=== PATIENT | male | born 1945 | race Caucasian/White ===

== ENCOUNTER 2019-09-27 10:54 | Outpatient (CLI) | payer MEDICARE, MEDICAID, SELFPAY ==
[2019-09-27 11:22] LABS: Basophils Absolute Auto 0.1 K/mm3 (0.0-0.1); Basophils Percent Auto 1.8 % (0.2-1.2); Eosinophils Absolute Auto 0.4 K/mm3 (0-0.3); Eosinophils Percent Auto 5.2 % (0-4.4); Hematocrit 38.1 % (42.0-52.0); Hemoglobin 12.6 g/dL (14.0-18.0); Immature Granulocyte Absolute 0.01 K/mm3 (0.00-0.031); Immature Granulocyte Percent A 0.1 % (0-0.5); Lymphocytes Absolute Auto 1.91 K/mm3 (0.9-3.2); Lymphocytes Percent Auto 26.1 % (18.3-44.2); Mean Corpuscular HGB Conc 33.1 g/dl (32-36); Mean Corpuscular Hemoglobin 33.7 pg (26-34); Mean Corpuscular Volume 101.9 fl (80-100); Mean Platelet Volume 9.4 fl (7.4-10.4); Monocytes Absolute Auto 0.5 K/mm3 (0.1-0.6); Monocytes Percent Auto 7.3 % (2.6-8.5); Neutrophils Absolute Auto 4.4 K/mm3 (1.3-6.7); Neutrophils Percent Auto 59.5 % (45.5-73.1); Platelet Count Result 195 k/mm3 (150-375); Red Blood Count 3.74 M/mm3 (4.6-6.20); Red Cell Distribution Width 11.6 % (11.5-14.5); White Blood Count 7.3 K/mm3 (4.5-10.0)
[2019-09-27 11:23] LABS: Alanine Aminotransferase 30 U/L (4-50); Albumin Level 4.3 g/dL (3.5-5.1); Alkaline Phosphatase 58 U/L (38-126); Anion Gap 12 mmol/L (8-16); Aspartate Amino Transferase 28 U/L (17-59); Bilirubin,Total 0.3 mg/dL (0.2-1.3); Blood Urea Nitrogen 32 mg/dL (9-20); Calcium 9.1 mg/dL (8.4-10.2); Carbon Dioxide 29 mmol/L (22-30); Chloride 96 mmol/L (98-107); Cholesterol 137 mg/dL (0-200); Estimated Glomerular Filt Rate 10; Glucose 120 mg/dL (75-110); HDL Direct 42 mg/dL; Potassium 4.6 mmol/L (3.4-5.0); Sodium 137 mmol/L (137-145); Triglycerides 129 mg/dL (<150)
[2019-09-27 11:34] LABS: LDL Cholesterol Direct 64 mg/dL
[2019-09-27 13:16] LABS: Hemoglobin A1C 5.6 % (<5.7)
== END 2019-09-27 10:55 | disposition home or self-care (01) ==
PROVIDERS: PCP Internal Medicine; Visit Provider Clinical Nurse Specialist
DX: E11.9 Type 2 diabetes mellitus without complications (principal); Z12.5 Encounter for screening for malignant neoplasm of prostate
CPT/HCPCS: 36415; 80053; 80061; 83036; 84153; 85025; G0103

== ENCOUNTER 2021-05-28 14:44 | Inpatient (IN) | payer MEDICARE, MEDICAID, SELFPAY ==
[2021-05-28] VITALS (13 sets, daily range): BP systolic 106–154; BP diastolic 47–115; PULSE 64–85; RESP 12–20; TEMP 36.7–37.2; O2SAT 91–100; BMI 27.3
--- NOTE | ~2021-05-28 | XR_ITS ---
EXAMINATION: XR chest 1V portable Exam Date/Time: 05/28/2021 16:40 CDT CLINICAL HISTORY: dyspnea Comparison: 08/25/2018. RESULT: Lines, tubes, and devices: None. Lungs and pleura: Diffuse reticular pattern, slightly decreased since the prior study. Cardiomediastinal silhouette: Stable cardiomediastinal silhouette. Other: No acute osseous or upper abdominal finding. IMPRESSION: Pulmonary opacities may reflect mild interstitial edema, senescent change, or a combination of the tw o. Reviewed, dictated and finalized at location K. IMPRESSION: Pulmonary opacities may reflect mild interstitial edema, senescent change, or a combination of the two.
--- NOTE | ~2021-05-28 | BM_ITS ---
EXAMINATION: CCL bone marrow asp w bx diag DATE: 06/01/2021 10:01 INDICATION: Anemia. TECHNIQUE: A time-out was performed to verify the patient's name, date of , and procedure to b e performed. The procedure including the risks, benefits, and alternatives was discussed with the pat ient. Risks discussed included bleeding and infection. The patient understood the risks and agreed to proceed. The skin overlying the left ilium was prepped and draped in usual sterile fashion. Anesth etic was administered with 1% lidocaine subcutaneously. Moderate sedation was achieved with 1 mg Vers ed IV and 50 mcg fentanyl IV. An 11 gauge needle was inserted into the ilium with fluoroscopic janelle nce. Bone marrow was aspirated. An 8 gauge needle was then inserted into the ilium with fluoroscopic guidance. A core bone marrow biopsy was obtained. There were no immediate complications. Fluoroscopy exposure time was 0.0 minutes. The total number of images saved was 0. FINDINGS: Real-time fluoroscopy demonstrates a marker overlying the left posterior superior iliac spi ne. IMPRESSION: 1. Fluoro-guided bone marrow aspiration. 2. Fluoro-guided bone marrow core biopsy. Reviewed, dictated and finalized at location A.
--- NOTE | ~2021-05-28 | XR_ITS ---
EXAMINATION: XR shoulder LT min 2V EXAM DATE: 05/29/2021 09:48 INDICATION: No Injury Bilateral Shoulder Pain. TECHNIQUE: The following left shoulder projections obtained: frontal projection with internal rotatio n, frontal projection with external rotation, Grashey, and axillary (4+ views). Comparison is made to prior examination from 07/10/2013. FINDINGS: No evidence of left shoulder rotator cuff calcific tendinosis. There is moderate glenohu meral joint, moderate acromioclavicular joint primary osteoarthritis, with minimal progression compar ed to 2013. There are no acute fractures or dislocations identified. There is no subcutaneous gas. The soft tissue is unremarkable. There are no radiopaque foreign bodies. IMPRESSION: Moderate left shoulder osteoarthritis. Reviewed, dictated and finalized at location A.
--- NOTE | ~2021-05-28 | XR_ITS ---
EXAM: XR_[id number]_CR HISTORY: Shoulder pain, no injury COMPARISON: None available FINDINGS: Severe osteopenia. The craniocervical association and atlantoaxial joint are normal save f or the presence of mild degenerative change. Prevertebral soft tissues are normal. Mild disc space na rrowing in the lower cervical spine. Mild multilevel facet hypertrophy. IMPRESSION: No acute fracture or traumatic malalignment in the cervical spine. Reviewed, dictated and finalized at location K.
--- NOTE | ~2021-05-28 | XR_ITS ---
EXAMINATION: XR shoulder RT min 2V EXAM DATE: 05/29/2021 09:48 INDICATION: Bilateral shoulder pain. TECHNIQUE: The following right shoulder projections obtained: frontal projection with internal rotati on, frontal projection with external rotation, Grashey, and scapular Y view (4+ views). There is no prior study for comparison. FINDINGS: No evidence of right shoulder rotator cuff calcific tendinosis. There is moderate glenoh umeral joint, moderate acromioclavicular joint primary osteoarthritis. There are no acute fractures o r dislocations identified. There is no subcutaneous gas. The soft tissue is unremarkable. There a re no radiopaque foreign bodies. IMPRESSION: Moderate right shoulder osteoarthritis. Reviewed, dictated and finalized at location A.
--- NOTE | ~2021-05-28 | XR_ITS ---
EXAMINATION: XR chest 1V portable DATE: 05/30/2021 09:12 INDICATION: Shortness of breath. TECHNIQUE: A single frontal view of the chest was obtained. COMPARISON: Chest single view 05/28/2021, CT abdomen and pelvis 08/30/2017 FINDINGS: There is a diffuse interstitial pattern. Perihilar airspace opacities are noted. No pleural effusion or pneumothorax. The heart size is normal. IMPRESSION: 1. Worsened diffuse lung disease, likely mild pulmonary edema. Reviewed, dictated and finalized at location A.
--- NOTE | 2021-05-28 14:57 | ECG_ITS ---
Measurements Intervals [place] Rate: 71 P: -45 [place]: 163 QRS: 15 QRSD: 108 T: 129 QT: 432 QTc: 471 Interpretive Statements SINUS RHYTHM POSSIBLE ANTERIOR MYOCARDIAL INFARCTION , OF INDETERMINATE AGE [30 ms Q WAVE IN V3/V4, OR R < 0.2 mV IN V4] MODERATE T-WAVE ABNORMALITY, CONSIDER LATERAL ISCHEMIA [-0.1+ mV T WAVE IN I/aVL/V5/V6] COMPARED TO ECG 08/26/2018 12:50:04 NO SIGNIFICANT CHANGES Electronically Signed On 05-29-2021 6:55:06 CDT by Latonya Mcqueen M.D.
--- NOTE | 2021-05-28 15:00 | ED.GENADULT ---
HPI - General Adult General Chief complaint: Recheck/Abnormal Lab/Rx Stated complaint: low hemoglobin Time Seen by Provider: 05/28/21 14:46 Source: RN notes reviewed History of Present Illness HPI narrative: Patient presents to emergency department from home for anemia. The patient states he is a dialysis patient with dialysis Sunday and followed by Dr. Ruiz he had dialysis yesterday and hemoglobin was drawn at that time they came back with the results of 7.6. Patient's hemoglobin was 10.4 on April 16 and is progressively decreased down to 9.2 on May 14. Patient is on a baby aspirin today but denies any other blood thinners denies any blood in his stool he does receive Epogen shots with his last he states he has been feeling generally weak and tired he notes mild shortness of breath with ambulation Related Data Home Medications Medication Instructions Recorded Confirmed aspirin 81 mg tablet,delayed 81 mg PO DAILY 03/24/19 03/25/19 release blood sugar diagnostic #10 each 03/24/19 03/25/19 ipratropium bromide 17 2 puff INHALATION TID 03/24/19 03/25/19 mcg/actuation HFA aerosol inhaler nifedipine 60 mg tablet,extended 60 mg PO DAILY 03/24/19 03/25/19 release sevelamer HCl 800 mg tablet 1,600 mg PO TID tablet 03/24/19 03/25/19 minoxidil 2.5 mg tablet 10 mg PO DAILY tablet 03/25/19 03/25/19 Allergies Allergy/AdvReac Type Severity Reaction Status Date / Time shellfish derived Allergy Unknown Anaphylactic Verified 05/28/21 15:09 Shock SHELLFISH Allergy Unknown Anaphylaxis Uncoded 05/28/21 15:09 Review of Systems Review of Systems: Gen.: Denies fevers or chills ENT: Denies congestion Respiratory: Ports mild shortness of breath with ambulation him CV: Denies chest pain or palpitations GI: Denies abdominal pain nausea, emesis or diarrhea reports chronic renal failure dialysis Musculoskeletal: Denies back pain or muscle pain Neuro: Denies numbness, tingling for general weakness Skin: Denies rash Except as documented, all other systems reviewed and negative PMFSH Past Medical History Medical History Constipation by delayed colonic transit Diabetic retinopathy Diastolic heart failure End stage renal disease Hyperglycemia Insomnia Nonrheumatic aortic (valve) stenosis Surgical History Surgical History (Updated 03/25/19 @ 12:52 by Dinorah Liu CMA) Fistula Status post balloon angioplasty of pulmonary artery branches Social History Social History Smoking status: Former smoker Smoking end date: 02/19/05 Alcohol intake: never Exam Narrative: APPEARANCE: No acute distress, nontoxic, resting in bed EYES: EOMI HEENT: Normocephalic, atraumatic, OMM RESPIRATORY: No respiratory distress Clear to auscultation bilaterally with no rhonchi wheezing or rales. CARDIOVASCULAR: Regular rate and rhythm without murmurs rubs or gallops. ABDOMINAL: Soft, nontender, nondistended, no rebound or guarding Rectal: No hemorrhoids or fissures no active bleeding brown stool in rectal vault that is Hemoccult negative MUSCULOSKELETAl: Moves all extremities. No clubbing, cyanosis or edema. NEURO: Awake and alert. Following commands, speech normal, no focal deficits SKIN:: Warm, dry. No rashes lesions or abrasions PSYCHIATRIC: Normal affect/mood, Course Course Emergency Course: Discussed with Dr. Ruiz agrees with consult request patient received 1 unit PRBCs with consult to hematology Discussed with Dr. Duran who agrees with consult agrees with plan for 1 unit of blood transfusion With STRUCTURAL ENGINEERING PROJECT MANAGER Crystal for Dr. Russell agrees with admission Discussed with patient and family results of workup and diagnosis. Discussed need for admission. Patient and family understand and agree to current treatment plan Vital Signs Vital signs: Vital Signs Temperature 98.2 F 05/28/21 14:50 Pu
[2021-05-28 15:09] LABS: Basophils Absolute Auto 0.1 K/mm3 (0.0-0.1); Basophils Percent Auto 1.1 % (0.2-1.2); Eosinophils Absolute Auto 0.5 K/mm3 (0-0.3); Eosinophils Percent Auto 8.3 % (0-4.4); Hematocrit 25.3 % (42.0-52.0); Immature Granulocyte Absolute 0.02 K/mm3 (0.00-0.031); Immature Granulocyte Percent A 0.3 % (0-0.5); Lymphocytes Absolute Auto 0.88 K/mm3 (0.9-3.2); Mean Corpuscular HGB Conc 31.6 g/dl (32-36); Mean Corpuscular Hemoglobin 36.7 pg (26-34); Mean Corpuscular Volume 116.1 fl (80-100); Mean Platelet Volume 9.6 fl (7.4-10.4); Monocytes Absolute Auto 0.4 K/mm3 (0.1-0.6); Monocytes Percent Auto 5.7 % (2.6-8.5); Neutrophils Absolute Auto 4.4 K/mm3 (1.3-6.7); Neutrophils Percent Auto 70.6 % (45.5-73.1); Platelet Count Result 215 k/mm3 (150-375); Red Blood Count 2.18 M/mm3 (4.6-6.20); Red Cell Distribution Width 14.4 % (11.5-14.5); White Blood Count 6.3 K/mm3 (4.5-10.0)
[2021-05-28 15:18] LABS: Prothrombin Time 13.1 Seconds (11.1-14.7)
[2021-05-28 15:19] LABS: Alanine Aminotransferase 13 U/L (4-50); Albumin Level 4.1 g/dL (3.5-5.1); Alkaline Phosphatase 58 U/L (38-126); Anion Gap 11 mmol/L (8-16); Aspartate Amino Transferase 29 U/L (17-59); Bilirubin,Total 0.6 mg/dL (0.2-1.3); Blood Urea Nitrogen 48 mg/dL (9-20); Calcium 8.8 mg/dL (8.4-10.2); Carbon Dioxide 28 mmol/L (22-30); Chloride 98 mmol/L (98-107); Estimated CRCL calculation 9 ml/min; Estimated Glomerular Filt Rate 9; Glucose 172 mg/dL (65-110); Potassium 4.1 mmol/L (3.4-5.0); Sodium 137 mmol/L (137-145)
[2021-05-28 15:34] LABS: Partial Thromboplastin Time 27.9 SECONDS (22.3-36.8)
[2021-05-28 16:21] LABS: Immature Reticulocyte Fraction 14.5 % (3.0-15.9); Reticulocyte Percent 3.25 % (0.7-4.3); Reticulocytes Absolute 0.06 B/L (32.2-175.7)
[2021-05-28 16:47] LABS: Iron 73 ug/dL (49-181)
[2021-05-28 16:56] LABS: Percent Iron Saturation 33 % (20-50)
--- NOTE | 2021-05-28 18:33 | PM.IMHP ---
H&P: HPI History of Present Illness Date/Time: Patient was placed observation status for expected length of stay less than 23 hours for management, will plan to re-evaluate tomorrow for improvement. 05/28/21 18:33 Chief Complaint: Fatigue Narrative: Mr. Cheek there is a 75-year-old gentleman who presented to the emergency room after having laboratories performed at outside facility and being told by his steam and gas turbine assembler to come to emergency room. Patient has a known history of end-stage renal disease and is on hemodialysis Sunday, Sunday, Sunday. Patient had laboratories drawn yesterday and it was noted the patient had a hemoglobin of 7.6. Patient was notified by his steam and gas turbine assembler to come to the hospital. Patient states that he has been feeling very fatigued over the last few months and he is not sure why. Patient states he has chronic insomnia so this is not a change for him. Patient denies any obvious signs and symptoms of bleeding. Patient denies any hematemesis, melena, hematochezia, or hematuria. Patient denies any chest pain, shortness of breath, lightheadedness, dizziness, syncopal, or near syncopal episodes. Patient states he has just progressively gotten weaker. Patient states that he has become weak enough that it is difficult for him to walk at times. Patient has a known history of coronary artery disease status post stent placement, hypertension, diabetes mellitus, diabetic retinopathy, and glaucoma. Patient is a former smoker smoked approximately half a pack of cigarettes a day for 40 years. Patient states he has been taking all medications at home without any difficulty and has been attending all dialysis treatments without any difficulty. Review of Systems Review of Systems: A 12 point review of systems was completed patient all pertinent positive and negative per HPI the remainder are unremarkable. [facility] Past Medical History Medical History (Updated 05/28/21 @ 18:45 by Nan Frazier APRN) Constipation by delayed colonic transit Coronary artery disease Diabetic retinopathy Diastolic heart failure End stage renal disease Hyperglycemia Hypertension Insomnia Nonrheumatic aortic (valve) stenosis Surgical History Surgical History (Updated 03/25/19 @ 12:52 by Dinorah Liu CMA) Fistula Status post balloon angioplasty of pulmonary artery branches Social History Social History Smoking status: Former smoker Smoking end date: 02/19/05 Alcohol intake: never Meds Home Medications and Allergies Home Medications Medication Instructions Recorded Confirmed Type aspirin 81 mg tablet,delayed 81 mg PO DAILY 03/24/19 03/25/19 History release blood sugar diagnostic #10 each 03/24/19 03/25/19 History ipratropium bromide 17 2 puff INHALATION TID 03/24/19 03/25/19 History mcg/actuation HFA aerosol inhaler nifedipine 60 mg tablet,extended 60 mg PO DAILY 03/24/19 03/25/19 History release sevelamer HCl 800 mg tablet 1,600 mg PO TID tablet 03/24/19 03/25/19 History minoxidil 2.5 mg tablet 10 mg PO DAILY tablet 03/25/19 03/25/19 History linaclotide 72 mcg capsule 72 mcg PO DAILY PRN #90 cap 09/30/19 09/30/19 Rx atorvastatin 40 mg tablet 40 mg PO DAILY #90 tablet 07/09/20 Rx metoprolol succinate 100 mg 100 mg PO DAILY #90 tablet 07/09/20 Rx tablet,extended release 24 hr lisinopril 20 mg tablet 20 mg PO DAILY #30 tablet 12/01/20 Rx Allergies Allergy/AdvReac Type Severity Reaction Status Date / Time shellfish derived Allergy Unknown Anaphylactic Verified 05/28/21 15:09 Shock SHELLFISH Allergy Unknown Anaphylaxis Uncoded 05/28/21 15:09 Vital Signs Vital Signs - 24 hr 05/28/21 14:50 05/28/21 15:09 05/28/21 15:43 Temperature 36.8 C Pulse Rate 70 67 Respiratory Rate 18 15 14 Blood Pressure 119/66 106/47 L Pulse Oximetry 94 95 93 05/28/21 16:51 Temperature Pulse Rate 64 Respiratory Rate 12 Blood Pressure 1
[2021-05-28 18:39] LABS: Lactate Dehydrogenase 287 U/L (313-618)
--- NOTE | 2021-05-28 18:47 | ADMGEN ---
This patient, Isidoro Cheek, was admitted to [facility] Surg Room 307-01. Patient/family oriented to hospital policies and general routines including ID bracelet, bed and alarms, visiting hours, pain management, procedures, bathroom and other care routines, personal items, smoking policy, room service/diet, and visiting hours. Information on how to activate the Rapid Response Team has been discussed. Patient/Family are encouraged to report perceived risks to care and to ask questions if they do not understand what they are told or what they should do.
[2021-05-28] MEDS: HEPARIN SODIUM 5,000 UNITS/ML VIAL 5000 UNITS SUB-Q (21:29)
[2021-05-28] MEDS: diphenhydrAMINE HCl CAP 25 MG CAPSULE PO (21:29)
[2021-05-28] MEDS: ACETAMINOPHEN 500 MG TABLET 1000 MG PO (21:29)
[2021-05-28] MEDS: SODIUM CHLORIDE 0.9% IV 250 ML 30 ML IV CONT (21:30)
[2021-05-28] MEDS: METOPROLOL SUCCINATE EXT REL 25 MG TABCR PO (22:53)
[2021-05-28] MEDS: NIFEdipine 30 MG TAB.ER.24 60 MG PO (22:54)
[2021-05-29] VITALS (18 sets, daily range): BP systolic 93–146; BP diastolic 39–87; PULSE 64–85; RESP 16–21; TEMP 36.3–36.9; O2SAT 91–100; BMI 27.3
[2021-05-29 06:06] LABS: Basophils Absolute Auto 0.1 K/mm3 (0.0-0.1); Eosinophils Absolute Auto 0.5 K/mm3 (0-0.3); Eosinophils Percent Auto 7.8 % (0-4.4); Hematocrit 26.2 % (42.0-52.0); Hemoglobin 8.2 g/dL (14.0-18.0); Immature Granulocyte Absolute 0.01 K/mm3 (0.00-0.031); Immature Granulocyte Percent A 0.1 % (0-0.5); Lymphocytes Absolute Auto 0.99 K/mm3 (0.9-3.2); Lymphocytes Percent Auto 14.6 % (18.3-44.2); Mean Corpuscular HGB Conc 31.3 g/dl (32-36); Mean Corpuscular Hemoglobin 34.9 pg (26-34); Mean Corpuscular Volume 111.5 fl (80-100); Mean Platelet Volume 9.9 fl (7.4-10.4); Monocytes Absolute Auto 0.4 K/mm3 (0.1-0.6); Monocytes Percent Auto 6.5 % (2.6-8.5); Neutrophils Absolute Auto 4.7 K/mm3 (1.3-6.7); Platelet Count Result 182 k/mm3 (150-375); Red Blood Count 2.35 M/mm3 (4.6-6.20); Red Cell Distribution Width 17.6 % (11.5-14.5); White Blood Count 6.8 K/mm3 (4.5-10.0)
[2021-05-29 06:18] LABS: Anion Gap 15 mmol/L (8-16); Blood Urea Nitrogen 58 mg/dL (9-20); Calcium 8.3 mg/dL (8.4-10.2); Carbon Dioxide 23 mmol/L (22-30); Chloride 100 mmol/L (98-107); Estimated CRCL calculation 8 ml/min; Estimated Glomerular Filt Rate 8; Glucose 124 mg/dL (65-110); Phosphorus 5.4 mg/dL (2.5-4.5); Potassium 4.1 mmol/L (3.4-5.0); Sodium 138 mmol/L (137-145)
[2021-05-29] MEDS: ATORVASTATIN 40 MG TABLET PO (08:03)
[2021-05-29] MEDS: lisinopriL 20 MG TABLET PO (08:03)
[2021-05-29] MEDS: SEVELAMER CARBONATE 800 MG TABLET 1600 MG PO ×3 (08:03→16:30)
[2021-05-29] MEDS: METOPROLOL SUCCINATE EXT REL 25 MG TABCR PO ×2 (08:04→20:23)
[2021-05-29] MEDS: HEPARIN SODIUM 5,000 UNITS/ML VIAL 5000 UNITS SUB-Q (08:05)
--- NOTE | 2021-05-29 08:55 | PM.CNNEP ---
Assessment and Plan Additional Plan 1. The patient has end-stage renal disease. This is due to hypertension and diabetes. He is due for dialysis tomorrow. His volume status looks okay today and his electrolytes are okay. 2. The patient has anemia. Hemoglobin is low, reticulocyte count is low, Iron is satisfactory. In addition stools are guaiac negative and he has not had any black or bloody stools by history. It sounds like this is decreased production of red cells. He is on Epogen 4000units per treatment. Not sure when that started. In March as his hemoglobin was above 11 so his Epogen was held for a couple of weeks. His white count and his platelet count are okay. Perhaps this is just delayed action after restarting EPO. Perhaps her might be something else going on. Hematology consult requested. 3. The patient has shoulder pain. It is unclear what is causing this. Will get x-rays of his shoulders. Consider orthopedic consult. The other option is a non orthopedic cause. One thing that comes to mind is pericarditis because it hurts more when he lays flat however this is usually pain between the shoulder blades not in the shoulder and he distinctly does not have this symptom. it also does not hurt worse when he takes a deep breath Will check an echocardiogram. 4. his blood pressure is on the low side. Will hold minoxidil and hold the nifedipine for now. See with the echocardiogram shows. If he has pericardial fluid, this may explain the low blood pressure and the shoulder pain and would be a reason not to restart the minoxidil. 5. Diabetes this will be managed by the hospitalists 6. hypertension as above. Were going to continue the lisinopril for now. 7. Renal osteodystrophy will check a phosphorus level in the morning. 8. Coronary disease: if all the above does not borrero out then consider cardiac issues for the shoulder pain and low blood pressure. Check troponins. History of Present Illness Reason for Consult Consult date: 05/29/21 Chief Complaint Chief complaint: Anemia, Chronic Renal Failure History of Present Illness Narrative: Isidoro is very pleasant 75-year-old gentleman who has multiple medical problems including end-stage renal disease on dialysis 3 times a week, coronary artery disease, Non rheumatic aortic valve stenosis, atorvastatin, hypertension, renal osteodystrophy, anemia of chronic kidney disease, diabetes with retinopathy, insomnia. the patient has been having problems for the last few weeks. He has had shoulder pain in both shoulders. It does not hurt with movement but hurts when he lays down flat. it is a generalized aching. It does not worsen with exertion. It does not worsen with a deep breath. He has no shortness of breath when recumbent. No back pain. No neck pain. He also has had insomnia. This is been going on for a long time. He stays up all night watching TV generally. It has been worsened lately because of his shoulder pain. The patient's hemoglobin was pretty good in March but then April was down a little bit but the last test at the dialysis unit showed his hemoglobin was only 7. yesterday he felt very fatigued and so came into the emergency room. In the ER his hemoglobin was 8, his iron was okay, his stool was guaiac negative, and his reticulocyte count was very low. He was admitted for transfusion and for hematology consult. The patient's blood pressure was low on admission as well. During dialysis is blood pressure is have occasionally dropped into the 90s with fluid remove but generally run in the 100-130 range. The patient has aortic stenosis. He does not remember when he last saw his recorder of deeds. Review of Systems Constitutional: Constitutional: Reports no additional constitutional complaints Eyes: Eyes: Reports no additional eye complaints ENT: Reports system reviewed and no additional complaints, except as documented Car
--- NOTE | 2021-05-29 10:06 | ECG_ITS ---
Measurements Intervals [place] Rate: 62 P: -21 [place]: 206 QRS: 14 QRSD: 108 T: 188 QT: 455 QTc: 464 Interpretive Statements SINUS RHYTHM ST DEVIATION AND MODERATE T-WAVE ABNORMALITY, CONSIDER LATERAL ISCHEMIA [-0.1+ mV T WAVE IN I/aVL/V5/V6] ABNORMAL ECG COMPARED TO ECG 05/28/2021 14:56:31 NO SIGNIFICANT CHANGES Electronically Signed On 05-30-2021 13:51:24 CDT by Shaq Wiseman M.D.
--- NOTE | 2021-05-29 10:30 | PM.IMPN ---
Progress Note: A&P Assessment and Plan (1) Symptomatic anemia: Code(s): D64.9 - Anemia, unspecified Status: Acute Assessment and Plan: Patient's hemoglobin is 8.0 with hematocrit 25.3. Reticulocyte count was performed and it resulted at 0.06. Patient's armor officer would like patient to receive 1 unit of packed red blood cells and hematology to be consulted. He received 1 unit of PRBC transfusion 05/28/2021. Hematology has been consulted and appreciate recommendations. Vitamin B12 normal. Check folic acid, RBC folate. Haptoglobin is pending. No hyperbilirubinemia suggestive of hemolysis though. LDH is low. Check hepatitis panel and CMV/EBV/HIV testing. Continue monitor H&H. FOBT test in the ER was reported to be negative (2) End stage renal disease: Code(s): N18.6 - End stage renal disease Status: Acute Assessment and Plan: Patient's armor officer consulted for inpatient hemo dialysis Sunday, Sunday, and Sunday. Patient appears euvolemic at this time. (3) Hypertension: Code(s): I10 - Essential (primary) hypertension Status: Acute Assessment and Plan: Will resume patient's home medications once we have a verified medication list and adjust medications accordingly for optimal blood pressure control. (4) Nonrheumatic aortic (valve) stenosis: Code(s): I35.0 - Nonrheumatic aortic (valve) stenosis Status: Acute (5) Shoulder pain: Code(s): M25.519 - Pain in unspecified shoulder Status: Acute Assessment and Plan: Has bilateral shoulder pain for a while. X-ray shoulder done earlier shows moderate osteoarthritis This could also be related to cervical disc disease referred pain. Will get x-ray cervical spine Very atypical for cardiac etiology however EKG and troponin was checked EKG showed nonspecific ST-T changes particularly in lateral leads. Troponin was ordered and came back elevated at 0.9. Serial troponins ordered. Repeat EKG showed similar ST-T changes in the lateral leads but new T-wave inversion in V5. Will consult Cardiology for further evaluation Does have history of coronary artery disease status post stent in the past (6) Murmur: Code(s): R01.1 - Cardiac murmur, unspecified Status: Acute Assessment and Plan: Is noted to have diffuse murmur his chest aortic stenosis history reported in his chart. Echocardiogram 2019 shows ejection fraction 55-60% mild MR mild aortic stenosis moderate aortic valve sclerosis and trace TR. Will get echocardiogram to evaluate Subjective Date/time seen: 05/29/21 10:30 Interval history: HPI: Mr. Cheek there is a 75-year-old gentleman who presented to the emergency room after having laboratories performed at outside facility and being told by his armor officer to come to emergency room. Patient has a known history of end-stage renal disease and is on hemodialysis Sunday, Sunday, Sunday. Patient had laboratories drawn yesterday and it was noted the patient had a hemoglobin of 7.6. Patient was notified by his armor officer to come to the hospital. Patient states that he has been feeling very fatigued over the last few months and he is not sure why. Patient states he has chronic insomnia so this is not a change for him. Patient denies any obvious signs and symptoms of bleeding. Patient denies any hematemesis, melena, hematochezia, or hematuria. Patient denies any chest pain, shortness of breath, lightheadedness, dizziness, syncopal, or near syncopal episodes. Patient states he has just progressively gotten weaker. Patient states that he has become weak enough that it is difficult for him to walk at times. Patient has a known history of coronary artery disease status post stent placement, hypertension, diabetes mellitus, diabetic retinopathy, and glaucoma. Patient is a former smoker smoked approximately half a pack of cigarettes a day for 40 years. Patient states he has been taking a
[2021-05-29 12:06] LABS: HIV 1/2 Ab P24 Ag Result Negative (Negative)
[2021-05-29 12:14] LABS: Hepatitis B Surface Antigen Negative (Negative)
[2021-05-29 12:20] LABS: HAV RESULT Negative (Negative); Hepatitis B Core IgM Result Negative (Negative)
[2021-05-29 12:32] LABS: Hepatitis C Virus Antibody Negative (Negative)
[2021-05-29] MEDS: ACETAMINOPHEN 500 MG TABLET 1000 MG PO (12:42)
--- NOTE | 2021-05-29 13:54 | PM.CNCAR ---
Assessment and Plan Additional Plan NSTEMI, Hx of CAD and prior PCI, for patient with anemia but no evidence of bleeding, ESRD on HD, HTN, Plan Keep HGB > 8 gm/dL, ASA 81 mg daily, heparin infusion, Statin, B-vinnie LHC in AM, consult hematology to evaluate cause of anemia History of Present Illness History of Present Illness Consult date/time: 05/29/21 13:54 Consult reason: Other (elevated troponin) Reason For Visit: Anemia, Chronic Renal Failure Narrative: Patient presented as referral by his doctor for abnormal HGB. Patient has been feeling fatigue with generalized weakness recently. No chest pain or SOB. trop was done as part of work up on admission and was positive and repeat was higher. He still denies chest or cardiac symptoms. He had Hx of CAD and prior PCI. Hx of ESRD on HD, HTN and DM. Review of Systems Review of Systems: All systems reviewed & are unremarkable except as noted in HPI and below PMFSH Past Medical History Medical History Constipation by delayed colonic transit Coronary artery disease Diabetic retinopathy Diastolic heart failure End stage renal disease Hyperglycemia Hypertension Insomnia Nonrheumatic aortic (valve) stenosis Surgical History Surgical History Fistula Status post balloon angioplasty of pulmonary artery branches Social History Social History Smoking status: Current every day smoker Tobacco type: cigarettes Smoking end date: 02/19/05 Alcohol intake: never Substance use: never Spiritual care concerns: No Meds Home Medications and Allergies Home Medications Medication Instructions Recorded Confirmed Type blood sugar diagnostic #10 each 03/24/19 05/28/21 History nifedipine 60 mg tablet,extended 60 mg PO BID 03/24/19 05/28/21 History release sevelamer HCl 800 mg tablet 1,600 mg PO TID tablet 03/24/19 05/28/21 History minoxidil 2.5 mg tablet 10 mg PO BID tablet 03/25/19 05/28/21 History atorvastatin 40 mg tablet 40 mg PO DAILY #90 tablet 07/09/20 05/28/21 Rx lisinopril 20 mg tablet 20 mg PO DAILY #30 tablet 12/01/20 05/28/21 Rx metoprolol succinate 25 mg PO BID 05/28/21 05/28/21 History Allergies Allergy/AdvReac Type Severity Reaction Status Date / Time shellfish derived Allergy Unknown Anaphylactic Verified 05/28/21 18:58 Shock SHELLFISH Allergy Unknown Anaphylaxis Uncoded 05/28/21 18:58 Vital Signs Vital Signs - 24 hr 05/28/21 14:50 05/28/21 15:09 05/28/21 15:43 Temperature 36.8 C Pulse Rate 70 67 Respiratory Rate 18 15 14 Blood Pressure 119/66 106/47 L Pulse Oximetry 94 95 93 05/28/21 16:51 05/28/21 18:30 05/28/21 18:46 Temperature 37.0 C Pulse Rate 64 65 78 Respiratory Rate 12 12 16 Blood Pressure 129/54 L 136/61 133/61 Pulse Oximetry 99 97 97 05/28/21 19:05 05/28/21 20:29 05/28/21 22:00 Temperature 37.0 C 36.9 C Pulse Rate 78 85 Respiratory Rate 16 18 Blood Pressure 133/61 137/68 Pulse Oximetry 91 100 05/28/21 22:29 05/28/21 22:48 05/28/21 22:53 Temperature 36.9 C 37.2 C Pulse Rate 85 77 77 Respiratory Rate 20 20 Blood Pressure 131/105 H 154/115 H Pulse Oximetry 97 96 05/28/21 23:48 05/29/21 00:47 05/29/21 00:48 Temperature 36.7 C 36.8 C 36.8 C Pulse Rate 64 66 66 Respiratory Rate 18 16 16 Blood Pressure 138/89 146/87 H 146/87 H Pulse Oximetry 100 100 100 05/29/21 01:48 05/29/21 06:00 05/29/21 08:00 Temperature 36.7 C 36.8 C Pulse Rate 66 64 Respiratory Rate 16 18 Blood Pressure 106/39 L 93/66 L 127/61 Pulse Oximetry 100 96 91 05/29/21 08:04 05/29/21 09:34 Temperature Pulse Rate 73 Respiratory Rate Blood Pressure Pulse Oximetry 93 Exam Const: General: comfortable and no acute distress Other: Able to lie flat HENMT: General nose exam: Normal nares present and no epistaxis Mouth: Yes moist m
--- NOTE | 2021-05-29 14:10 | PC.NURSE ---
This patient, Isidoro Cheek, was transferred to IMU on 05/29/21 at 1410. Personal belongings sent with patient. Report given to Lucy OWEN. Appropriate documentation sent with patient.
--- NOTE | 2021-05-29 15:06 | PC.NURSE ---
This patient, Isidoro Cheek, was received from [[id number] ] on 05/29/21 at 14:20. Patient/family oriented to unit policies and routines
[2021-05-29] MEDS: ASPIRIN 81 MG CHEWABLE TABLET 324 MG PO (15:54)
[2021-05-29 16:31] LABS: Glucose Point of Care 115 mg/dl (65-105)
--- NOTE | 2021-05-29 16:58 | PC.NURSE ---
Notified Dr. Bills and Dr. Russell of Patients elevated troponin of 1.550 at 13:16 and 1.610 at 16:41. Dr. Bills mentioned a Heparin drip. Notified Dr of nurse communication stating no systemic Heparin for Dialysis only. Spoke with Dr. Russell and I had the same conversation regarding Heparin and that the patient is on Dialysis and is due for Dialysis on Sunday05-30-2021. Asked Dr Russell to communicate with Dr. Bills to clarify orders.
--- NOTE | 2021-05-29 17:07 | PC.NURSE ---
Notified Dr. Ruiz of patient elevated troponin of 1.610 and the plan to put patient on a heparin drip and Dr. Ruiz agreed with administration of Heparin.
[2021-05-29 17:33] LABS: Basophils Absolute Auto 0.1 K/mm3 (0.0-0.1); Basophils Percent Auto 0.9 % (0.2-1.2); Eosinophils Absolute Auto 0.5 K/mm3 (0-0.3); Hematocrit 25.2 % (42.0-52.0); Hemoglobin 8.2 g/dL (14.0-18.0); Immature Granulocyte Absolute 0.02 K/mm3 (0.00-0.031); Immature Granulocyte Percent A 0.3 % (0-0.5); Lymphocytes Absolute Auto 0.92 K/mm3 (0.9-3.2); Lymphocytes Percent Auto 12.4 % (18.3-44.2); Mean Corpuscular HGB Conc 32.5 g/dl (32-36); Mean Corpuscular Hemoglobin 35.8 pg (26-34); Mean Platelet Volume 9.7 fl (7.4-10.4); Monocytes Absolute Auto 0.4 K/mm3 (0.1-0.6); Monocytes Percent Auto 5.5 % (2.6-8.5); Neutrophils Absolute Auto 5.5 K/mm3 (1.3-6.7); Neutrophils Percent Auto 73.9 % (45.5-73.1); Platelet Count Result 198 k/mm3 (150-375); Red Blood Count 2.29 M/mm3 (4.6-6.20); Red Cell Distribution Width 17.5 % (11.5-14.5); White Blood Count 7.4 K/mm3 (4.5-10.0)
[2021-05-29 17:43] LABS: Prothrombin Time 13.2 Seconds (11.1-14.7)
[2021-05-29] MEDS: HEPARIN SOD/D5W 100 UNITS/ML 25,000 UNITS/250 ML BAG 8 UNITS IV CONT (17:43)
[2021-05-29 17:44] LABS: Partial Thromboplastin Time 29.4 SECONDS (22.3-36.8)
[2021-05-29] MEDS: HYDROcodone/acetaminophen (*CRX) 5-325 MG TABLET 1 TAB PO (20:24)
[2021-05-29] MEDS: MELATONIN 5 MG TABLET PO (20:24)
[2021-05-30] VITALS (27 sets, daily range): BP systolic 116–179; BP diastolic 43–97; PULSE 57–89; RESP 16–28; TEMP 36.4–36.6; O2SAT 96–100
[2021-05-30] MEDS: HEPARIN SODIUM 5,000 UNITS/ML VIAL 4000 UNITS IV PUSH ×2 (00:25→16:22)
[2021-05-30 06:42] LABS: Basophils Absolute Auto 0.1 K/mm3 (0.0-0.1); Basophils Percent Auto 0.9 % (0.2-1.2); Eosinophils Absolute Auto 0.6 K/mm3 (0-0.3); Eosinophils Percent Auto 7.9 % (0-4.4); Hematocrit 25.5 % (42.0-52.0); Hemoglobin 7.9 g/dL (14.0-18.0); Immature Granulocyte Absolute 0.03 K/mm3 (0.00-0.031); Immature Granulocyte Percent A 0.4 % (0-0.5); Lymphocytes Absolute Auto 1.06 K/mm3 (0.9-3.2); Lymphocytes Percent Auto 13.5 % (18.3-44.2); Mean Corpuscular Hemoglobin 36.9 pg (26-34); Mean Corpuscular Volume 119.2 fl (80-100); Mean Platelet Volume 9.5 fl (7.4-10.4); Monocytes Absolute Auto 0.4 K/mm3 (0.1-0.6); Monocytes Percent Auto 5.4 % (2.6-8.5); Neutrophils Absolute Auto 5.7 K/mm3 (1.3-6.7); Neutrophils Percent Auto 71.9 % (45.5-73.1); Platelet Count Result 131 k/mm3 (150-375); Red Blood Count 2.14 M/mm3 (4.6-6.20); Red Cell Distribution Width 16.7 % (11.5-14.5); White Blood Count 7.9 K/mm3 (4.5-10.0)
[2021-05-30 06:56] LABS: Partial Thromboplastin Time 105.6 SECONDS (22.3-36.8)
[2021-05-30 07:06] LABS: Albumin Level 3.6 g/dL (3.5-5.1); Anion Gap 12 mmol/L (8-16); Blood Urea Nitrogen 72 mg/dL (9-20); Calcium 8.5 mg/dL (8.4-10.2); Carbon Dioxide 25 mmol/L (22-30); Chloride 99 mmol/L (98-107); Estimated CRCL calculation 6 ml/min; Estimated Glomerular Filt Rate 6; Glucose 131 mg/dL (65-110); Phosphorus 5.6 mg/dL (2.5-4.5); Potassium 4.3 mmol/L (3.4-5.0); Sodium 136 mmol/L (137-145)
[2021-05-30 08:30] LABS: Hepatitis B Surface Anti Res Positive
--- NOTE | 2021-05-30 09:12 | ECHO_ITS ---
Patient Info Name: Isidoro Cheek Age: 75 years : 1945 Gender: Male Ht: 66 in Wt: 169 lbs BSA: 1.91 m2 HR: 90 bpm BP: 135 / 56 mmHg Heart Rhythm: Sinus Rhythm Exam Date: 05/30/2021 8:45 AM Exam Location: [facility] Pul[facility] Patient Status: Inpatient Admit Date: 05/28/2021 Staff Ordering Physician: Odin Ruiz MD Take Off Man: Supa Sibley RDCS, RT Attending Provider: Preston Russell MD Referring Physician: Joseph LASSITER; Exam Type: CA echo doppler color flow Study Info Indications I35.0 - Nonrheumatic aortic (valve) stenosis Complete two-dimensional, color flow and Doppler transthoracic echocardiogram is performed. Summary 1. Complete two-dimensional, color flow and Doppler transthoracic echocardiogram is performed. 2. Left ventricular chamber dimension is mildly enlarged. 3. Left ventricular systolic function is severely reduced, estimated at 30-35%. 4. There is mildly increased left ventricular wall thickness. 5. The left ventricular diastolic function is abnormal. 6. The inferior wall, inferoseptal wall, apical cap, mid anteroseptal, basal inferolateral wall, and mid inferolateral wall are hypokinetic. 7. Left atrial chamber dimension is mildly enlarged. 8. There is moderate aortic valve stenosis with a peak velocity of 253 cm/s, mean gradient of 13 mmHg, and aortic valve area of 1.1 cm2. 9. There is moderate mitral valve regurgitation. 10. There is mild tricuspid valve regurgitation. Left Ventricle Left ventricular chamber dimension is mildly enlarged. Left ventricular systolic function is severely reduced, estimated at 30-35%. There is mildly increased left ventricular wall thickness. The left ventricular diastolic function is abnormal. The inferior wall, inferoseptal wall, apical cap, mid anteroseptal, basal inferolateral wall, and mid inferolateral wall are hypokinetic. All other loyd appear normal. Right Ventricle Right ventricular chamber dimension is normal. Right ventricular systolic function is normal. Left Atria Left atrial chamber dimension is mildly enlarged. Right Atria Right atrial chamber dimension is normal. Atrial Septum Intact interatrial septum visualized by color flow imaging. Aortic Valve The aortic valve is trileaflet. There is severe aortic valve sclerosis. There is moderate aortic valve stenosis with a peak velocity of 253 cm/s, mean gradient of 13 mmHg, and aortic valve area of 1.1 cm2. There is trace aortic valve regurgitation. Pulmonic Valve The pulmonic valve is normal. There is no pulmonic valve stenosis. There is trace pulmonic regurgitation. Mitral Valve The mitral valve has thickened leaflets. There is no mitral valve stenosis. There is moderate mitral valve regurgitation. Tricuspid Valve The tricuspid valve leaflets are normal. There is no significant tricuspid valve stenosis. There is mild tricuspid valve regurgitation. Pericardium/Pleural The pericardium appears normal. There is trivial pericardial effusion. Inferior Vena Cava Dilated inferior vena cava with <50% collapse upon inspiration consistent with elevated right atrial pressure, 15 mmHg. Aorta The aortic root size at the sinus of Valsalva is normal. There is mild aortic atherosclerosis. Left Ventricular Outflow Tract Name Value Normal
[2021-05-30] MEDS: FUROSEMIDE INJ 40 MG/4 ML VIAL IV PUSH ×2 (09:21→09:23)
[2021-05-30] MEDS: ATORVASTATIN 40 MG TABLET PO (09:24)
[2021-05-30] MEDS: lisinopriL 20 MG TABLET PO (09:25)
[2021-05-30] MEDS: METOPROLOL SUCCINATE EXT REL 25 MG TABCR PO ×2 (09:25→20:44)
--- NOTE | 2021-05-30 09:25 | ECG_ITS ---
Measurements Intervals Ronald Rate: 76 P: 13 SC: 199 QRS: 44 QRSD: 112 T: -1 QT: 417 QTc: 471 Interpretive Statements SINUS RHYTHM MODERATE INTRAVENTRICULAR CONDUCTION DELAY [110+ ms QRS DURATION] ST DEVIATION AND MODERATE T-WAVE ABNORMALITY, CONSIDER LATERAL ISCHEMIA [-0.1+ mV T WAVE IN I/aVL/V5/V6] COMPARED TO ECG 05/29/2021 10:16:36 NO SIGNIFICANT CHANGE Electronically Signed On 05-30-2021 15:36:05 CDT by Reinaldo Hagen M.D.
[2021-05-30] MEDS: FUROSEMIDE INJ 40 MG/4 ML VIAL (09:27)
--- NOTE | 2021-05-30 09:29 | PC.NURSE ---
special procedures technologist called to notify her of patient having increasing shortness of breath, in the meantime MD was walking down the hallway. MD notified of current situation. Pt on 5L NC sating from 75-95%. Pt restless and unable to lie flat. Upon reassessment pt's lungs are wheezy. New order for 40mg IVP Lasix x2 to help with pulmonary edema, and to place patient on continuous BiPAP, per verbal order from Dr. Russell.
[2021-05-30 10:05] LABS: Base Excess ABG -3.8 mEq/l (+/-2.0); Fractional Inspired Oxygen 60 %; HCO3 ABG 21.8 mEq/l (22.0-26.0); Oxygen Content ABG 16.2 %vol (16.0-22.0); Oxygen Saturation ABG 95.8 % (95.0-100.0); Oxyhemoglobin 93.1 % THb (90.0-100.0); PCO2 ABG 41.8 mmHg (35.0-45.0); PO2 ABG 84.8 mmHg (80.0-100.0); PO2 FiO2 Ratio Arterial Blood 1.41 %; Total Hemoglobin 12.3 g/dL (12.0-18.0); pH ABG 7.336 (7.350-7.450)
[2021-05-30 10:07] LABS: Device NON-INVASIVE VENT; Modified Allen's Test Pass; Non-Invasive Expiratory Pressure 7 CMH2O; Non-Invasive Inspiratory Pressure 12 CMH2O; Non-Invasive Vent Rate 16 /MIN; Site Drawn RIGHT RADIAL
--- NOTE | 2021-05-30 10:41 | PM.PNCARD ---
Progress Note: A&P Assessment and Plan (1) Nonrheumatic aortic (valve) stenosis: Code(s): I35.0 - Nonrheumatic aortic (valve) stenosis Status: Acute Assessment and Plan: Murmur sounds significant but echo is pending. (2) Hypertension: Code(s): I10 - Essential (primary) hypertension Status: Acute Assessment and Plan: Continue lisinopril, metoprolol, minoxidil, nifedipine. (3) End stage renal disease: Code(s): N18.6 - End stage renal disease Status: Acute Assessment and Plan: Hemodialysis now (4) Non-STEMI (non-ST elevated myocardial infarction): Code(s): I21.4 - Non-ST elevation (NSTEMI) myocardial infarction Status: Acute Assessment and Plan: Aspirin 81 mg p.o. daily, continue heparin drip, metoprolol, atorvastatin. Has anterolateral ST and T-wave abnormality, probably ischemic. Because of his acute shortness of breath, will dialyze now. Keep NPO after midnight for coronary angiogram tomorrow. (5) Symptomatic anemia: Code(s): D64.9 - Anemia, unspecified Status: Acute Assessment and Plan: Probably related to end-stage renal disease (6) Coronary artery disease: Code(s): I25.10 - Atherosclerotic heart disease of [place] coronary artery without angina pectoris Status: Inactive Assessment and Plan: Previous PCI. Subjective Date/time seen: 05/30/21 10:41 Interval history: HPI: Mr. Cheek there is a 75-year-old gentleman who presented to the emergency room after having laboratories performed at outside facility and being told by his tile designer to come to emergency room. Patient has a known history of end-stage renal disease and is on hemodialysis Sunday, Sunday, Sunday. Patient had laboratories drawn yesterday and it was noted the patient had a hemoglobin of 7.6. Patient was notified by his tile designer to come to the hospital. Patient states that he has been feeling very fatigued over the last few months and he is not sure why. Patient states he has chronic insomnia so this is not a change for him. Patient denies any obvious signs and symptoms of bleeding. Patient denies any hematemesis, melena, hematochezia, or hematuria. Patient denies any chest pain, shortness of breath, lightheadedness, dizziness, syncopal, or near syncopal episodes. Patient states he has just progressively gotten weaker. Patient states that he has become weak enough that it is difficult for him to walk at times. Patient has a known history of coronary artery disease status post stent placement, hypertension, diabetes mellitus, diabetic retinopathy, and glaucoma. Patient is a former smoker smoked approximately half a pack of cigarettes a day for 40 years. Patient states he has been taking all medications at home without any difficulty and has been attending all dialysis treatments without any difficulty. Date of service 05/30/2021: Had significant shortness of breath earlier today but no longer short of breath. No chest pain. Review of Systems Review of Systems: All systems reviewed & are unremarkable except as noted in HPI and below Constitutional: Constitutional: Reports weakness Eyes: Eyes: Denies blurry vision ENT: Reports Normal hearing present Cardiovascular: Cardiovascular: Denies chest pain Respiratory: Respiratory: Reports dyspnea Gastrointestinal: Gastrointestinal: Denies abdominal pain Genitourinary: Genitourinary: Denies dysuria Musculoskeletal: Musculoskeletal: Denies neck pain Integumentary/Breasts: Skin/Breast: Denies dry skin Neurologic: Denies headache(s) Psychiatric: Psychiatric: Denies anxiety Endocrine: Endocrine: Denies change in body appearance Hematologic/Lymphatic: Hematologic/Lymphatic: Denies easy bleeding Allergic/Immunologic: Allergic/Immunologic: Denies GI upset with certain foods Exam Const: General: comfortable and no acute distress Other: Able to lie flat HENMT: General no
--- NOTE | 2021-05-30 10:44 | PC.NURSE ---
Pt to dialysis with BiPAP on.
[2021-05-30 10:47] LABS: SARS-CoV-2 RNA PCR Negative
--- NOTE | 2021-05-30 12:46 | PDONCCN ---
HPI - Date of Consult Date/Time: 05/30/21 12:46 Requesting Physician: Preston Russell MD Primary Care Provider: Juan David Laboy, - Consult Narrative Reason for consult: Macrocytic anemia Narrative: Isidoro Cheek is a 75 year old male with history of chronic kidney disease and has been on hemodialysis came into the hospital after being told by his distribution center assistant for anemia with reticulocytopenia. He has been complaining of tiredness and fatigue. He denies any bleeding including melena hematochezia. Labs showed hemoglobin of 8 with absolute reticulocyte count of 0.06. He denies any recent infection including viral infection. No other new complaints. He received 1 unit of packed red blood cell due to tiredness and fatigue. Review of Systems - Review of Systems All systems reviewed & are unremarkable except as noted in HPI and bel - Neurologic Reports system reviewed and no additional complaints, except as documented, Reports hearing normal, Reports weakness, Denies headache(s) [facility] Medical History: Medical History (Last Updated 05/30/21 @ 10:44 by Shaq Wiseman MD) Constipation by delayed colonic transit Coronary artery disease Diabetic retinopathy Diastolic heart failure End stage renal disease Hyperglycemia Hypertension Insomnia Nonrheumatic aortic (valve) stenosis Surgical History: Surgical History (Last Reviewed 05/29/21 @ 09:02 by Odin Ruiz MD) Fistula Status post balloon angioplasty of pulmonary artery branches - Social History Social History: Social History (Last Reviewed 05/29/21 @ 09:02 by Odin Ruiz MD) Alcohol Use: Alcohol intake: never Substance Use: Substance use: never Others: Spiritual care concerns: No Smoking Status: Smoking status: Former smoker Tobacco type: cigarettes Smoking end date: 02/19/05 Smoking Pack-years: Smoking packs per day: 0.5 Smoking cigarettes per day: 10.0 Years smoked: 40 Smoking pack-years: 20.00 Meds Home Medications Medication Instructions Recorded Confirmed Type blood sugar diagnostic #10 each 03/24/19 05/28/21 History nifedipine 60 mg tablet,extended 60 mg PO BID 03/24/19 05/28/21 History release sevelamer HCl 800 mg tablet 1,600 mg PO TID tablet 03/24/19 05/28/21 History minoxidil 2.5 mg tablet 10 mg PO BID tablet 03/25/19 05/28/21 History atorvastatin 40 mg tablet 40 mg PO DAILY #90 tablet 07/09/20 05/28/21 Rx lisinopril 20 mg tablet 20 mg PO DAILY #30 tablet 12/01/20 05/28/21 Rx metoprolol succinate 25 mg PO BID 05/28/21 05/28/21 History Allergies Allergy/AdvReac Type Severity Reaction Status Date / Time shellfish derived Allergy Unknown Anaphylactic Verified 05/28/21 18:58 Shock SHELLFISH Allergy Unknown Anaphylaxis Uncoded 05/28/21 18:58 Results - Labs CBC & Chem 7: 05/30/21 06:36 05/30/21 06:36 Labs: Short CBC 05/29/21 05/30/21 Range/Units 17:29 06:36 WBC 7.4 7.9 (4.5-10.0) K/mm3 Hgb 8.2 L 7.9 L (14.0-18.0) g/dL Hct 25.2 L 25.5 L (42.0-52.0) % Plt Count 198 131 L (150-375) k/mm3 BMP 05/30/21 06:36 Sodium 136 L Potassium 4.3 Chloride 99 Carbon Dioxide 25 BUN 72 H D Creatinine 8.70 H Glucose 131 H Calcium 8.5 Cardiac Enzymes 05/29/21 05/29/21 05/30/21 Range/Units 12:44 15:39 06:36 Troponin I 1.550 H* D 1.610 H* 1.480 H* (0.000-0.034) ng/mL Liver Function 05/30/21 Range/Units 06:36 Albumin 3.6 (3.5-5.1) g/dL Assessment and Plan - Additional Plan Macrocytic anemia. Patient is a 75-year-old male with end-stage renal disease on hemodialysis. He came into the hospital with tiredness and fatigue. Hemoglobin was 8.0 and received 1 unit of packed red blood cell. He denies any bleeding including melena hematochezia. He denies any history of liver disease but has some history of drinking alcohol in the past. Denies any bone marrow dis
--- NOTE | 2021-05-30 13:22 | PM.PNNEP ---
Progress Note: A&P Assessment and Plan (1) End stage renal disease: Code(s): N18.6 - End stage renal disease Status: Chronic Assessment and Plan: HD today and continue M/W/ schedule follow electroltyes, volume status, and clearance (2) Non-STEMI (non-ST elevated myocardial infarction): Code(s): I21.4 - Non-ST elevation (NSTEMI) myocardial infarction Status: Acute Assessment and Plan: as noted by evidence to date Echo results noted on heparin gtt plan cardiac catheterization soon (3) Symptomatic anemia: Code(s): D64.9 - Anemia, unspecified Status: Acute Assessment and Plan: partly related to ESRD no evidence of GI loss on high dose Epogen with HD Hematology consulted follow H/H (4) Hypertension: Code(s): I10 - Essential (primary) hypertension Status: Chronic Assessment and Plan: reasonable control at this time continue home medications follow trend of hemodynamics (5) Diabetes: Code(s): E11.9 - Type 2 diabetes mellitus without complications Status: Chronic Assessment and Plan: follow accuchecks glycemic control Will continue to follow. Subjective Date/time seen: 05/30/21 13:22 Chart reviewed - assuming care from Dr. Vaca; tolerating dialysis treatment at this time (seen on HD at ~ 12:50PM) with improvement in respiratory status; no other acute issues noted at this time; seen by Cardiology yesterday as well and started on heparin gtt due to rising troponins. Exam Narrative: General: WD/WN male/female in NAD Heart: normal S1 and S2; no rub Lungs: bibasilar crackles Abdomen: soft, nontender, nondistended, positive bowel sounds Extremities: no cyanosis or clubbing; trace edema Skin: warm and dry Objective Data Vital Signs Vital Signs: Vital Signs Temp Pulse Resp BP Pulse Ox 05/30/21 13:10 100 05/30/21 13:05 65 18 100 05/30/21 10:52 68 16 98 05/30/21 10:08 64 18 99 05/30/21 10:00 65 05/30/21 09:27 96 05/30/21 09:25 88 05/30/21 08:00 36.4 C 72 28 H 179/97 H 97 05/30/21 05:37 70 05/30/21 03:59 62 18 96 05/30/21 03:40 36.6 C 66 18 135/56 L 96 05/30/21 02:00 58 L 05/30/21 00:00 57 L 20 98 05/29/21 23:39 36.4 C 85 20 116/68 98 05/29/21 21:07 68 05/29/21 20:23 66 05/29/21 20:04 95 05/29/21 20:00 66 20 95 05/29/21 19:53 36.3 C L 68 20 111/72 97 05/29/21 18:00 65 05/29/21 16:30 36.3 C L 66 21 H 132/57 L 97 05/29/21 16:00 65 93 05/29/21 14:45 93 05/29/21 14:00 36.9 C 67 16 124/65 97 Intake/Output Intake/Output: Intake & Output 05/27/21 05/28/21 05/29/21 05/30/21 23:59 23:59 23:59 23:59 Intake Total 0 1870 Output Total 0 Balance 0 1870 0 Meds/Results Medications: Active Medications Generic Name Dose Route Start Last Admin Trade Name Freq PRN Reason Stop Dose Admin Acetaminophen 1,000 mg 05/28/21 21:18 05/29/21 12:42 Acetaminophen 500 Mg Tablet PO 1,000 mg Q6H PRN Administration Mild Pain (1-3) or Fever Hydrocodone Bitart/Acetaminophen 1 tab 05/29/21 14:05 05/29/21 20:24 Hydrocodone/Acetaminophen (*Crx) 5-325 Mg Tablet PO 1 tab Q6H PRN Administration Pain Rated 4-6 Aspirin 81 mg 05/31/21 09:00 Aspirin 81 Mg Enteric Tablet PO QAM [facility] Atorvastatin Calcium 40 mg 05/29/21 09:00 05/30/21 09:24 Atorvastatin 40 Mg Tablet PO 40 mg DAILY SARITA Administration Diphenhydramine HCl 25 mg 05/28/21 21:19 05/28/21 21:29 Diphenhydramine Hcl Cap 25 Mg Capsule PO 25 mg HS PRN Administration Insomnia Epoetin Edmond-epbx 10,000 units 05/30/21 17:00 Epoetin [place]-Epbx 10,000 Units/Ml Vial IV PUSH [id number] SARITA Heparin Sodium (Porcine) 4,000 units 05/29/21 17:15 05/30/21 00:25 Heparin Sodium 5,000 Units/Ml Vial IV PUSH 4,000 units PRN PRN
--- NOTE | 2021-05-30 14:08 | PC.NURSE ---
Cardiopulmonary Rehab Services flyer was given to patient in cardiac admission folder.
--- NOTE | 2021-05-30 14:35 | PC.NURSE ---
Pt returned from dialysis via bed. 3L NC on patient with no difficulty breathing
--- NOTE | 2021-05-30 15:42 | PM.IMPN ---
Progress Note: A&P Assessment and Plan (1) Symptomatic anemia: Code(s): D64.9 - Anemia, unspecified Status: Acute Assessment and Plan: Patient's hemoglobin is 8.0 with hematocrit 25.3. Reticulocyte count was performed and it resulted at 0.06. Patient's pattern mechanic would like patient to receive 1 unit of packed red blood cells and hematology to be consulted. He received 1 unit of PRBC transfusion 05/28/2021. Hematology has been consulted and appreciate recommendations. Vitamin B12 normal. Check folic acid, RBC folate. Haptoglobin is pending. No hyperbilirubinemia suggestive of hemolysis though. LDH is low. Check hepatitis panel and CMV/EBV/HIV testing. Continue monitor H&H. FOBT test in the ER was reported to be negative. Ferritin is 911 not suggestive of iron deficiency. Discussed with hematology. He likely needs bone marrow biopsy for further evaluation (2) End stage renal disease: Code(s): N18.6 - End stage renal disease Status: Acute Assessment and Plan: Patient's pattern mechanic consulted for inpatient hemo dialysis Sunday, Sunday, and Sunday. He appeared to be in moderate respiratory distress with flash pulmonary edema. Urgent dialysis was arranged for this morning (3) Hypertension: Code(s): I10 - Essential (primary) hypertension Status: Acute Assessment and Plan: Will resume patient's home medications once we have a verified medication list and adjust medications accordingly for optimal blood pressure control. (4) Nonrheumatic aortic (valve) stenosis: Code(s): I35.0 - Nonrheumatic aortic (valve) stenosis Status: Acute (5) Shoulder pain: Code(s): M25.519 - Pain in unspecified shoulder Status: Acute Assessment and Plan: Has bilateral shoulder pain for a while. X-ray shoulder done earlier shows moderate osteoarthritis This could also be related to cervical disc disease referred pain. Will get x-ray cervical spine Very atypical for cardiac etiology however EKG and troponin was checked EKG showed nonspecific ST-T changes particularly in lateral leads. Troponin was ordered and came back elevated at 0.9. Serial troponins ordered. Repeat EKG showed similar ST-T changes in the lateral leads but new T-wave inversion in V5. Will consult Cardiology for further evaluation Does have history of coronary artery disease status post stent in the past Diagnosed with non ST-elevation MA On heparin drip per protocol Cardiology planning to do a heart catheterization for further evaluation (6) Murmur: Code(s): R01.1 - Cardiac murmur, unspecified Status: Acute Assessment and Plan: Is noted to have diffuse murmur his chest aortic stenosis history reported in his chart. Echocardiogram 2019 shows ejection fraction 55-60% mild MR mild aortic stenosis moderate aortic valve sclerosis and trace TR. Echo 05/30/2021 with EF 30-35% with hypokinetic inferior wall and inferoseptal wall apical cap mid anteroseptal basal inferolateral wall and mid inferolateral wall moderate aortic valve stenosis and moderate mitral valve regurgitation mild TR (7) Acute pulmonary edema: Code(s): J81.0 - Acute pulmonary edema Status: Acute Assessment and Plan: With moderate respiratory distress 05/30/2021 Lasix 80 mg IV x1 Placed on BiPAP 12 over 7 Arrange for urgent dialysis Additional Plan Critical care time 30 minutes Subjective Date/time seen: 05/30/21 15:42 Interval history: HPI: Mr. Cheek there is a 75-year-old gentleman who presented to the emergency room after having laboratories performed at outside facility and being told by his pattern mechanic to come to emergency room. Patient has a known history of end-stage renal disease and is on hemodialysis Sunday, Sunday, Sunday. Patient had laboratories drawn yesterday and it was noted the patient had a hemoglobin of 7.6. Patient was notified by his pattern mechanic to come to the hospital
[2021-05-30 16:07] LABS: Partial Thromboplastin Time 37.9 SECONDS (22.3-36.8)
[2021-05-30] MEDS: SEVELAMER CARBONATE 800 MG TABLET 1600 MG PO (16:22)
[2021-05-30] MEDS: HEPARIN SOD/D5W 100 UNITS/ML 25,000 UNITS/250 ML BAG 14 UNITS IV CONT (16:26)
[2021-05-30] MEDS: HYDROcodone/acetaminophen (*CRX) 5-325 MG TABLET 1 TAB PO (20:43)
[2021-05-30] MEDS: MELATONIN 5 MG TABLET PO (20:44)
[2021-05-30 22:56] LABS: Partial Thromboplastin Time > 200.0 SECONDS (22.3-36.8)
[2021-05-31] VITALS (20 sets, daily range): BP systolic 127–142; BP diastolic 54–83; PULSE 57–72; RESP 14–20; TEMP 36.4–36.7; O2SAT 95–100
[2021-05-31 06:19] LABS: Basophils Absolute Auto 0.1 K/mm3 (0.0-0.1); Eosinophils Absolute Auto 0.5 K/mm3 (0-0.3); Eosinophils Percent Auto 6.4 % (0-4.4); Hematocrit 25.5 % (42.0-52.0); Hemoglobin 8.2 g/dL (14.0-18.0); Immature Granulocyte Absolute 0.03 K/mm3 (0.00-0.031); Immature Granulocyte Percent A 0.4 % (0-0.5); Lymphocytes Absolute Auto 1.07 K/mm3 (0.9-3.2); Lymphocytes Percent Auto 14.9 % (18.3-44.2); Mean Corpuscular HGB Conc 32.2 g/dl (32-36); Mean Corpuscular Hemoglobin 35.8 pg (26-34); Mean Corpuscular Volume 111.4 fl (80-100); Mean Platelet Volume 10.1 fl (7.4-10.4); Monocytes Absolute Auto 0.5 K/mm3 (0.1-0.6); Monocytes Percent Auto 7.1 % (2.6-8.5); Neutrophils Percent Auto 70.2 % (45.5-73.1); Platelet Count Result 185 k/mm3 (150-375); Red Blood Count 2.29 M/mm3 (4.6-6.20); Red Cell Distribution Width 16.1 % (11.5-14.5); White Blood Count 7.2 K/mm3 (4.5-10.0)
[2021-05-31 06:29] LABS: Alanine Aminotransferase 9 U/L (4-50); Albumin Level 3.6 g/dL (3.5-5.1); Alkaline Phosphatase 55 U/L (38-126); Anion Gap 10 mmol/L (8-16); Aspartate Amino Transferase 20 U/L (17-59); Bilirubin,Total 0.6 mg/dL (0.2-1.3); Blood Urea Nitrogen 44 mg/dL (9-20); Calcium 8.5 mg/dL (8.4-10.2); Carbon Dioxide 30 mmol/L (22-30); Chloride 95 mmol/L (98-107); Estimated CRCL calculation 9 ml/min; Estimated Glomerular Filt Rate 9; Glucose 134 mg/dL (65-110); Magnesium 1.8 mg/dL (1.6-2.3); Sodium 135 mmol/L (137-145)
[2021-05-31] MEDS: HEPARIN SODIUM 5,000 UNITS/ML VIAL 3000 UNITS IV PUSH ×2 (07:04→20:39)
[2021-05-31] MEDS: lisinopriL 20 MG TABLET PO (08:30)
[2021-05-31] MEDS: METOPROLOL SUCCINATE EXT REL 25 MG TABCR PO ×2 (08:30→20:37)
[2021-05-31] MEDS: ATORVASTATIN 40 MG TABLET PO (08:30)
[2021-05-31] MEDS: ASPIRIN 81 MG ENTERIC TABLET PO (08:30)
--- NOTE | 2021-05-31 11:01 | PM.PNCARD ---
Progress Note: A&P Assessment and Plan (1) Nonrheumatic aortic (valve) stenosis: Code(s): I35.0 - Nonrheumatic aortic (valve) stenosis Status: Acute Assessment and Plan: Echo shows moderate aortic valve stenosis with a peak velocity of 253 cm/s, mean gradient of 13 mmHg, and aortic valve area of 1.1 cm2. He also has moderate MR. (2) Hypertension: Code(s): I10 - Essential (primary) hypertension Status: Acute Assessment and Plan: Continue lisinopril, metoprolol, minoxidil, nifedipine. (3) End stage renal disease: Code(s): N18.6 - End stage renal disease Status: Acute Assessment and Plan: Hemodialysis MW. (4) Non-STEMI (non-ST elevated myocardial infarction): Code(s): I21.4 - Non-ST elevation (NSTEMI) myocardial infarction Status: Acute Assessment and Plan: Aspirin 81 mg p.o. daily, continue heparin drip, metoprolol, atorvastatin. Has anterolateral ST and T-wave abnormality, probably ischemic. Not currently having any angina. He is on the schedule for coronary angiogram tomorrow morning. NPO after midnight (5) Symptomatic anemia: Code(s): D64.9 - Anemia, unspecified Status: Acute Assessment and Plan: Probably related to end-stage renal disease (6) Coronary artery disease: Code(s): I25.10 - Atherosclerotic heart disease of [place] coronary artery without angina pectoris Status: Inactive Assessment and Plan: Previous PCI. Subjective Date/time seen: 05/31/21 11:01 Interval history: HPI: Mr. Cheek there is a 75-year-old gentleman who presented to the emergency room after having laboratories performed at outside facility and being told by his pocket grinder operator to come to emergency room. Patient has a known history of end-stage renal disease and is on hemodialysis Sunday, Sunday, Sunday. Patient had laboratories drawn yesterday and it was noted the patient had a hemoglobin of 7.6. Patient was notified by his pocket grinder operator to come to the hospital. Patient states that he has been feeling very fatigued over the last few months and he is not sure why. Patient states he has chronic insomnia so this is not a change for him. Patient denies any obvious signs and symptoms of bleeding. Patient denies any hematemesis, melena, hematochezia, or hematuria. Patient denies any chest pain, shortness of breath, lightheadedness, dizziness, syncopal, or near syncopal episodes. Patient states he has just progressively gotten weaker. Patient states that he has become weak enough that it is difficult for him to walk at times. Patient has a known history of coronary artery disease status post stent placement, hypertension, diabetes mellitus, diabetic retinopathy, and glaucoma. Patient is a former smoker smoked approximately half a pack of cigarettes a day for 40 years. Patient states he has been taking all medications at home without any difficulty and has been attending all dialysis treatments without any difficulty. Date of service 05/30/2021: Had significant shortness of breath earlier today but no longer short of breath. No chest pain. Date of service 05/31/2021: Feeling much better today. He is not short of breath. Comfortable on 1L O2 today. Denies any chest pain. Review of Systems Review of Systems: All systems reviewed & are unremarkable except as noted in HPI and below Constitutional: Constitutional: Denies headache(s) and Reports weakness Eyes: Eyes: Denies blurry vision ENT: Reports Normal hearing present, Denies headache(s) and Denies neck pain Cardiovascular: Cardiovascular: Denies chest pain and Reports dyspnea Respiratory: Respiratory: Reports dyspnea Gastrointestinal: Gastrointestinal: Denies abdominal pain Genitourinary: Genitourinary: Denies dysuria Musculoskeletal: Musculoskeletal: Denies neck pain Integumentary/Breasts: Skin/Breast: Denies dry skin Neurologic: Reports Normal hearing present, Den
--- NOTE | 2021-05-31 11:47 | PM.PNNEP ---
Progress Note: A&P Assessment and Plan (1) End stage renal disease: Code(s): N18.6 - End stage renal disease Status: Chronic Assessment and Plan: HD tomorrow and continue M/W/F schedule follow electroltyes, volume status, and clearance (2) Non-STEMI (non-ST elevated myocardial infarction): Code(s): I21.4 - Non-ST elevation (NSTEMI) myocardial infarction Status: Acute Assessment and Plan: as noted by evidence to date Echo results noted on heparin gtt plan cardiac catheterization tomorrow (3) Symptomatic anemia: Code(s): D64.9 - Anemia, unspecified Status: Acute Assessment and Plan: partly related to ESRD no evidence of GI loss on high dose Epogen with HD Hematology recommendations noted - bone marrow biopsy tomorrow follow H/H (4) Hypertension: Code(s): I10 - Essential (primary) hypertension Status: Chronic Assessment and Plan: reasonable control at this time continue home medications follow trend of hemodynamics (5) Diabetes: Code(s): E11.9 - Type 2 diabetes mellitus without complications Status: Chronic Assessment and Plan: follow accuchecks glycemic control Will continue to follow. Subjective Date/time seen: 05/31/21 10:47 Tolerated dialysis treatment yesterday with significant improvement in breathing/respiratory status post procedure; oxygen weaned down from BiPAP to room air but back on 1L currently; no other acute issues/events overnight or earlier this AM. Exam Narrative: General: WD/WN male/female in NAD Heart: normal S1 and S2; no rub Lungs: decreased at bases Abdomen: soft, nontender, nondistended, positive bowel sounds Extremities: no cyanosis or clubbing; trace edema Skin: warm and intact Objective Data Vital Signs Vital Signs: Vital Signs Temp Pulse Resp BP Pulse Ox 05/31/21 10:00 62 05/31/21 08:30 68 05/31/21 08:00 67 95 05/31/21 07:56 36.7 C 68 16 142/54 H 100 05/31/21 05:55 62 05/31/21 04:30 95 05/31/21 04:00 36.6 C 62 20 127/83 100 05/31/21 02:00 70 05/31/21 00:00 70 18 96 05/30/21 23:46 36.6 C 70 18 138/70 96 05/30/21 22:00 64 05/30/21 20:44 60 05/30/21 20:00 36.6 C 72 20 143/76 H 100 05/30/21 18:00 79 05/30/21 17:38 36.4 C L 100 05/30/21 16:00 36.6 C 78 20 141/43 H 97 05/30/21 14:40 36.6 C 71 18 146/61 H 100 05/30/21 14:00 62 116/55 L 05/30/21 13:15 68 137/63 05/30/21 13:10 100 05/30/21 13:05 65 18 100 05/30/21 12:30 62 139/64 05/30/21 12:00 62 131/63 Intake/Output Intake/Output: Intake & Output 05/28/21 05/29/21 05/30/21 05/31/21 23:59 23:59 23:59 23:59 Intake Total 0 1870 720 100 Output Total 100 Balance 0 1870 620 100 Meds/Results Medications: Active Medications Generic Name Dose Route Start Last Admin Trade Name Freq PRN Reason Stop Dose Admin Acetaminophen 1,000 mg 05/28/21 21:18 05/29/21 12:42 Acetaminophen 500 Mg Tablet PO 1,000 mg Q6H PRN Administration Mild Pain (1-3) or Fever Hydrocodone Bitart/Acetaminophen 1 tab 05/29/21 14:05 05/30/21 20:43 Hydrocodone/Acetaminophen (*Crx) 5-325 Mg Tablet PO 1 tab Q6H PRN Administration Pain Rated 4-6 Aspirin 81 mg 05/31/21 09:00 05/31/21 08:30 Aspirin 81 Mg Enteric Tablet PO 81 mg QAM SARITA Administration Atorvastatin Calcium 40 mg 05/29/21 09:00 05/31/21 08:30 Atorvastatin 40 Mg Tablet PO 40 mg DAILY SARITA Administration Diphenhydramine HCl 25 mg 05/28/21 21:19 05/28/21 21:29 Diphenhydramine Hcl Cap 25 Mg Capsule PO 25 mg HS PRN Administration Insomnia Epoetin Edmond-epbx 10,000 units 05/30/21 17:00 05/30/21 16:23 Epoetin Edmond-Epbx 10,000 Units/Ml Vial IV PUSH Not Given MoWeFr@1700 [facility] Heparin Sodium (Porcine) 4,000 units 05/29/21 17:15 05/30/21 16:22 Hepar
[2021-05-31] MEDS: SEVELAMER CARBONATE 800 MG TABLET 1600 MG PO ×2 (12:03→16:29)
--- NOTE | 2021-05-31 12:36 | PM.IMPN ---
Progress Note: A&P Assessment and Plan (1) Symptomatic anemia: Code(s): D64.9 - Anemia, unspecified Status: Acute Assessment and Plan: Patient's hemoglobin is 8.0 with hematocrit 25.3. Reticulocyte count was performed and it resulted at 0.06. Patient's book solicitor would like patient to receive 1 unit of packed red blood cells and hematology to be consulted. He received 1 unit of PRBC transfusion 05/28/2021. Hematology has been consulted and appreciate recommendations. Vitamin B12 normal. Check folic acid, RBC folate. Haptoglobin is pending. No hyperbilirubinemia suggestive of hemolysis though. LDH is low. Check hepatitis panel and CMV/EBV/HIV testing. Continue monitor H&H. FOBT test in the ER was reported to be negative. Ferritin is 911 not suggestive of iron deficiency. Discussed with hematology. He likely needs bone marrow biopsy for further evaluation (2) End stage renal disease: Code(s): N18.6 - End stage renal disease Status: Acute Assessment and Plan: Patient's book solicitor consulted for inpatient hemo dialysis Sunday, Sunday, and Sunday. He appeared to be in moderate respiratory distress with flash pulmonary edema. Urgent dialysis was arranged 05/30/2021 Continue dialysis as scheduled inpatient (3) Hypertension: Code(s): I10 - Essential (primary) hypertension Status: Acute Assessment and Plan: Will resume patient's home medications once we have a verified medication list and adjust medications accordingly for optimal blood pressure control. (4) Nonrheumatic aortic (valve) stenosis: Code(s): I35.0 - Nonrheumatic aortic (valve) stenosis Status: Acute (5) Shoulder pain: Code(s): M25.519 - Pain in unspecified shoulder Status: Acute Assessment and Plan: Has bilateral shoulder pain for a while. X-ray shoulder done earlier shows moderate osteoarthritis This could also be related to cervical disc disease referred pain. Will get x-ray cervical spine Very atypical for cardiac etiology however EKG and troponin was checked EKG showed nonspecific ST-T changes particularly in lateral leads. Troponin was ordered and came back elevated at 0.9. Serial troponins ordered. Repeat EKG showed similar ST-T changes in the lateral leads but new T-wave inversion in V5. Will consult Cardiology for further evaluation Does have history of coronary artery disease status post stent in the past Diagnosed with non ST-elevation MT On heparin drip per protocol Cardiology planning to do a heart catheterization for further evaluation which is scheduled for 06/01/2021 on aspirin and atorvastatin and metoprolol succinate. No further shoulder PE no chest pain (6) Murmur: Code(s): R01.1 - Cardiac murmur, unspecified Status: Acute Assessment and Plan: Is noted to have diffuse murmur his chest aortic stenosis history reported in his chart. Echocardiogram 2019 shows ejection fraction 55-60% mild MR mild aortic stenosis moderate aortic valve sclerosis and trace TR. Echo 05/30/2021 with EF 30-35% with hypokinetic inferior wall and inferoseptal wall apical cap mid anteroseptal basal inferolateral wall and mid inferolateral wall moderate aortic valve stenosis and moderate mitral valve regurgitation mild TR (7) Acute pulmonary edema: Code(s): J81.0 - Acute pulmonary edema Status: Acute Assessment and Plan: With moderate respiratory distress 05/30/2021 Lasix 80 mg IV x1 Placed on BiPAP 12 over 7 Arrange for urgent dialysis 05/31/2021 much improved and resolved pulmonary edema Subjective Date/time seen: 05/31/21 12:36 Interval history: HPI: Mr. Cheek there is a 75-year-old gentleman who presented to the emergency room after having laboratories performed at outside facility and being told by his book solicitor to come to emergency room. Patient has a known history of end-stage renal disease and is on hemodialysis Sunday, Sunday,
[2021-05-31 13:31] LABS: Partial Thromboplastin Time 116.1 SECONDS (22.3-36.8)
[2021-05-31] MEDS: HEPARIN SOD/D5W 100 UNITS/ML 25,000 UNITS/250 ML BAG 12 UNITS IV CONT (14:23)
[2021-05-31 20:22] LABS: Partial Thromboplastin Time 65.7 SECONDS (22.3-36.8)
[2021-05-31] MEDS: MELATONIN 5 MG TABLET PO (20:37)
[2021-05-31] MEDS: HYDROcodone/acetaminophen (*CRX) 5-325 MG TABLET 1 TAB PO (20:37)
[2021-06-01] VITALS (48 sets, daily range): BP systolic 111–163; BP diastolic 45–75; PULSE 55–92; RESP 12–20; TEMP 36.2–37.1; O2SAT 93–100
[2021-06-01 02:53] LABS: Basophils Absolute Auto 0.1 K/mm3 (0.0-0.1); Basophils Percent Auto 1.1 % (0.2-1.2); Eosinophils Absolute Auto 0.4 K/mm3 (0-0.3); Eosinophils Percent Auto 5.9 % (0-4.4); Hematocrit 24.9 % (42.0-52.0); Hemoglobin 7.9 g/dL (14.0-18.0); Immature Granulocyte Absolute 0.03 K/mm3 (0.00-0.031); Immature Granulocyte Percent A 0.4 % (0-0.5); Lymphocytes Absolute Auto 1.38 K/mm3 (0.9-3.2); Lymphocytes Percent Auto 18.6 % (18.3-44.2); Mean Corpuscular HGB Conc 31.7 g/dl (32-36); Mean Corpuscular Hemoglobin 35.6 pg (26-34); Mean Corpuscular Volume 112.2 fl (80-100); Mean Platelet Volume 10.1 fl (7.4-10.4); Monocytes Absolute Auto 0.6 K/mm3 (0.1-0.6); Monocytes Percent Auto 7.9 % (2.6-8.5); Neutrophils Absolute Auto 4.9 K/mm3 (1.3-6.7); Neutrophils Percent Auto 66.1 % (45.5-73.1); Platelet Count Result 168 k/mm3 (150-375); Red Blood Count 2.22 M/mm3 (4.6-6.20); Red Cell Distribution Width 15.9 % (11.5-14.5); White Blood Count 7.4 K/mm3 (4.5-10.0)
[2021-06-01 03:06] LABS: Alanine Aminotransferase 8 U/L (4-50); Albumin Level 3.5 g/dL (3.5-5.1); Alkaline Phosphatase 49 U/L (38-126); Anion Gap 10 mmol/L (8-16); Aspartate Amino Transferase 16 U/L (17-59); Bilirubin,Total 0.5 mg/dL (0.2-1.3); Blood Urea Nitrogen 59 mg/dL (9-20); Calcium 8.4 mg/dL (8.4-10.2); Carbon Dioxide 29 mmol/L (22-30); Chloride 93 mmol/L (98-107); Estimated CRCL calculation 7 ml/min; Estimated Glomerular Filt Rate 7; Glucose 134 mg/dL (65-110); Magnesium 1.9 mg/dL (1.6-2.3); Sodium 132 mmol/L (137-145)
--- NOTE | 2021-06-01 08:39 | SUR.PREOP ---
v/o by dr bassett to stop the heparin gtt now
[2021-06-01] MEDS: lisinopriL 20 MG TABLET PO (08:44)
[2021-06-01] MEDS: ASPIRIN 81 MG ENTERIC TABLET PO (08:45)
[2021-06-01] MEDS: METOPROLOL SUCCINATE EXT REL 25 MG TABCR PO ×2 (08:45→20:51)
--- NOTE | 2021-06-01 08:45 | WPDMODSED ---
Moderate Sedation Note-Pt Data Patient Data Diagnosis: Anemia. Present Complaint: Anemia. Procedure to be performed/Plan: Fluoro-guided bone marrow biopsy. Allergies Allergy/AdvReac Type Severity Reaction Status Date / Time shellfish derived Allergy Unknown Anaphylactic Verified 05/28/21 18:58 Shock SHELLFISH Allergy Unknown Anaphylaxis Uncoded 05/28/21 18:58 Home Medications Medication Instructions Recorded Confirmed Type blood sugar diagnostic #10 each 03/24/19 05/28/21 History nifedipine 60 mg tablet,extended 60 mg PO BID 03/24/19 05/28/21 History release sevelamer HCl 800 mg tablet 1,600 mg PO TID tablet 03/24/19 05/28/21 History minoxidil 2.5 mg tablet 10 mg PO BID tablet 03/25/19 05/28/21 History atorvastatin 40 mg tablet 40 mg PO DAILY #90 tablet 07/09/20 05/28/21 Rx lisinopril 20 mg tablet 20 mg PO DAILY #30 tablet 12/01/20 05/28/21 Rx metoprolol succinate 25 mg PO BID 05/28/21 05/28/21 History Current Medications: Active Medications Acetaminophen (Acetaminophen 500 Mg Tablet) 1,000 mg PO Q6H PRN PRN Reason: Mild Pain (1-3) or Fever Last Admin: 05/29/21 12:42 Dose: 1,000 mg Documented by: Hydrocodone Bitart/Acetaminophen (Hydrocodone/Acetaminophen (*Crx) 5-325 Mg Tablet) 1 tab PO Q6H PRN PRN Reason: Pain Rated 4-6 Last Admin: 05/31/21 20:37 Dose: 1 tab Documented by: Aspirin (Aspirin 81 Mg Enteric Tablet) 81 mg PO QAM [facility] Last Admin: 05/31/21 08:30 Dose: 81 mg Documented by: Atorvastatin Calcium (Atorvastatin 40 Mg Tablet) 40 mg PO DAILY [facility] Last Admin: 05/31/21 08:30 Dose: 40 mg Documented by: Diphenhydramine HCl (Diphenhydramine Hcl Cap 25 Mg Capsule) 25 mg PO HS PRN PRN Reason: Insomnia Last Admin: 05/28/21 21:29 Dose: 25 mg Documented by: Epoetin Edmond-epbx (Epoetin Edmond-Epbx 10,000 Units/Ml Vial) 10,000 units IV PUSH MoWeFr@1700 [facility] Last Admin: 05/30/21 16:23 Dose: Not Given Documented by: Albumin Human (Albutein) 50 mls @ 999 mls/hr IVPB Q10M PRN PRN Reason: HYPOTENSION Stop: 07/01/21 07:07 Sodium Chloride (Normal Saline Iv) 250 mls @ 30 mls/hr IV CONT .Q8H20M STA Stop: 06/01/21 16:37 Lisinopril (Lisinopril 20 Mg Tablet) 20 mg PO DAILY [facility] Last Admin: 05/31/21 08:30 Dose: 20 mg Documented by: Melatonin (Melatonin 5 Mg Tablet) 5 mg PO HS [facility] Last Admin: 05/31/21 20:37 Dose: 5 mg Documented by: Metoprolol Succinate (Metoprolol Succinate Ext Rel 25 Mg Tabcr) 25 mg PO Q12HR [facility] Last Admin: 05/31/21 20:37 Dose: 25 mg Documented by: Neomycin/Polymyxin/Bacitracin (Neomycin/Polymyxin/Bacitracin Ointment 15 Gm Tube) 1 applic TOPICAL PRN PRN PRN Reason: with dressing changes Perflutren Lipid Microsphere (Perflutren Lipid Microspheres 1.5 Ml Vial Diluted To 10 Ml Total Volume) 0 ml IV PUSH ONCE PRN; Protocol PRN Reason: adequate visualization Sevelamer Carbonate (Sevelamer Carbonate 800 Mg Tablet) 1,600 mg PO TIDWM [facility] Last Admin: 06/01/21 08:03 Dose: Not Given Documented by: Sedation/Anesthesia: No previous sedation/anesthesia problems (including family history). [facility] Past Medical History Medical History Constipation by delayed colonic transit Coronary artery disease Diabetic retinopathy Diastolic heart failure End stage renal disease Hyperglycemia Hypertension Insomnia Nonrheumatic aortic (valve) stenosis Surgical History Surgical History Fistula Status post balloon angioplasty of pulmonary artery branches Social History Social History Smoking packs per day: 0.5 Smoking cigarettes per day: 10.0 Years smoked: 40 Smoking pack-years: 20.00 Smoking status: Former smoker Tobacco type: cigarettes Smoking end date: 02/19/05 Alcohol intake: never Substance use: never Spiritual care concerns: No Mod Sed Physical Exam Physical Exam Pre Procedural Ex
--- NOTE | 2021-06-01 08:49 | PC.NURSE ---
Addendum entered by Michelle Wu RN 06/01/21 08:49: Heparin drip stopped per Dr. Osorio's order Original Note: Pt to starch factory laborer for bone marrow biopsy and cardiac cath.
--- NOTE | 2021-06-01 09:17 | SUR.PREOP ---
written order from dr bassett to treat patient's shellfish allergy with solumedrol and benadryl now before his [facility]
--- NOTE | 2021-06-01 09:44 | WPDMODSED ---
Moderate Sedation Note-Pt Data Patient Data Diagnosis: Coronary artery disease with previous PCI Present Complaint: no complaints today Procedure to be performed/Plan: coronary angiography Allergies Allergy/AdvReac Type Severity Reaction Status Date / Time shellfish derived Allergy Unknown Anaphylactic Verified 06/01/21 09:20 Shock [place] Allergy Unknown Anaphylaxis Uncoded 06/01/21 09:20 Home Medications Medication Instructions Recorded Confirmed Type blood sugar diagnostic #10 each 03/24/19 05/28/21 History nifedipine 60 mg tablet,extended 60 mg PO BID 03/24/19 05/28/21 History release sevelamer HCl 800 mg tablet 1,600 mg PO TID tablet 03/24/19 05/28/21 History minoxidil 2.5 mg tablet 10 mg PO BID tablet 03/25/19 05/28/21 History atorvastatin 40 mg tablet 40 mg PO DAILY #90 tablet 07/09/20 05/28/21 Rx lisinopril 20 mg tablet 20 mg PO DAILY #30 tablet 12/01/20 05/28/21 Rx metoprolol succinate 25 mg PO BID 05/28/21 05/28/21 History Current Medications: Active Medications Acetaminophen (Acetaminophen 500 Mg Tablet) 1,000 mg PO Q6H PRN PRN Reason: Mild Pain (1-3) or Fever Last Admin: 05/29/21 12:42 Dose: 1,000 mg Documented by: Hydrocodone Bitart/Acetaminophen (Hydrocodone/Acetaminophen (*Crx) 5-325 Mg Tablet) 1 tab PO Q6H PRN PRN Reason: Pain Rated 4-6 Last Admin: 05/31/21 20:37 Dose: 1 tab Documented by: Aspirin (Aspirin 81 Mg Enteric Tablet) 81 mg PO QAM [facility] Last Admin: 06/01/21 08:45 Dose: 81 mg Documented by: Atorvastatin Calcium (Atorvastatin 40 Mg Tablet) 40 mg PO DAILY [facility] Last Admin: 05/31/21 08:30 Dose: 40 mg Documented by: Diphenhydramine HCl (Diphenhydramine Hcl Cap 25 Mg Capsule) 25 mg PO HS PRN PRN Reason: Insomnia Last Admin: 05/28/21 21:29 Dose: 25 mg Documented by: Epoetin Edmond-epbx (Epoetin Edmond-Epbx 10,000 Units/Ml Vial) 10,000 units IV PUSH MoWeFr@1700 [facility] Last Admin: 05/30/21 16:23 Dose: Not Given Documented by: Albumin Human (Albutein) 50 mls @ 999 mls/hr IVPB Q10M PRN PRN Reason: HYPOTENSION Stop: 07/01/21 07:07 Sodium Chloride (Normal Saline Iv) 250 mls @ 30 mls/hr IV CONT .Q8H20M STA Stop: 06/01/21 16:37 Lisinopril (Lisinopril 20 Mg Tablet) 20 mg PO DAILY [facility] Last Admin: 06/01/21 08:44 Dose: 20 mg Documented by: Melatonin (Melatonin 5 Mg Tablet) 5 mg PO HS [facility] Last Admin: 05/31/21 20:37 Dose: 5 mg Documented by: Metoprolol Succinate (Metoprolol Succinate Ext Rel 25 Mg Tabcr) 25 mg PO Q12HR [facility] Last Admin: 06/01/21 08:45 Dose: 25 mg Documented by: Neomycin/Polymyxin/Bacitracin (Neomycin/Polymyxin/Bacitracin Ointment 15 Gm Tube) 1 applic TOPICAL PRN PRN PRN Reason: with dressing changes Perflutren Lipid Microsphere (Perflutren Lipid Microspheres 1.5 Ml Vial Diluted To 10 Ml Total Volume) 0 ml IV PUSH ONCE PRN; Protocol PRN Reason: adequate visualization Sevelamer Carbonate (Sevelamer Carbonate 800 Mg Tablet) 1,600 mg PO TIDWM [facility] Last Admin: 06/01/21 08:03 Dose: Not Given Documented by: Sedation/Anesthesia: No previous sedation/anesthesia problems (including family history). [facility] Past Medical History Medical History Constipation by delayed colonic transit Coronary artery disease Diabetic retinopathy Diastolic heart failure End stage renal disease Hyperglycemia Hypertension Insomnia Nonrheumatic aortic (valve) stenosis Surgical History Surgical History Fistula Status post balloon angioplasty of pulmonary artery branches Social History Social History Smoking packs per day: 0.5 Smoking cigarettes per day: 10.0 Years smoked: 40 Smoking pack-years: 20.00 Smoking status: Former smoker Tobacco type: cigarettes Smoking end date: 02/19/05 Alcohol intake: never Substance use: never Spiritual care concerns: No Mod Sed Physical Exa
--- NOTE | 2021-06-01 10:15 | WPDCARDPROC ---
Cardiac Cath Procedure Note Date of procedure:: 06/01/21 Performing physician:: Reinaldo Hagen MD Indication:: ischemic cardiomyopathy elevated troponin Brief clinical history:: this is a 75-year-old man known to have coronary disease with PCI at another institution many years ago. Details of that are unknown to us. He presented to this hospital last weekend at the request of his precision instrument maker who manages his dialysis because of significant anemia. He is not reporting any chest pain symptoms. Troponin levels were sampled in this setting and were 0.9 rising to 1.5. Hemoglobin is low at 7.6. In this setting a follow-up angiogram has been recommended. Echocardiogram demonstrates moderate aortic valve stenosis with valve area of 1.1 and a low ejection fraction of 30%. Procedure Procedure performed:: Coronary angiogram Sedation/Medication given:: no sedation given( patient sedated for bone marrow for this case) case start time 9:55 a.m. case end time 10:08 a.m. Access site:: right femoral artery Estimated blood loss:: 20 cc Procedure note:: patient was brought to the cardiac catheterization lab following bone marrow aspiration. He was in the supine position and the right femoral triangle was prepared and draped in the usual fashion. Anesthesia was then given with 10 cc of lidocaine infiltrated locally. Using the modified Seldinger technique the femoral artery was punctured a 5 Syrian sheath was placed. I then performed coronary angiograms using a 5 Syrian FL4 catheter for the left coronary artery and a 5 Syrian JR4 catheter for the right coronary artery. The cineangiograms were then reviewed and the case was terminated. He was taken to the holding area for manual sheath removal. There were no procedural complications and no signs of a groin hematoma upon leaving the label coder. Findings:: Central aortic pressure is 158/78, left ventricle was not entered during this procedure the left main coronary artery is medium in caliber and free of significant disease. The left anterior descending is a medium caliber vessel it is heavily calcified in the proximal half of the vessel. There is diffuse atherosclerosis throughout the LAD. The most significant lesion is a 80-90% stenosis in the 1st portion of the artery which begins before the major diagonal branch takes its origin and crosses over the origin of the major diagonal. Once again the segment of the LAD is also heavily calcified. The lesion is complex and eccentric angiographically. In the midportion of the LAD there is a more very discrete stenosis of about 80% as well. The circumflex is a small vessel giving rise to only 1 significant OM branch. This 1st OM branch has a stenosis of 90% in its proximal segment. The AV groove portion of the circumflex is extremely small diffusely diseased. The right coronary artery is moderate to large caliber dominant to the posterior circulation. There is a visible stent in the 1st portion of the RCA. There is minimal loss of lumen in this stented segment does not appear to be functionally significant. There is diffuse [id number] disease throughout the remainder of the RCA. Most significant is about 50-60% stenosis in the 3rd portion of the vessel. The RPDA and RPL branches mildly diseased but patent with PASCUAL 3 flow. Conclusion:: 1. Coronary artery disease with heavily calcified LAD with complex 90% stenosis in the proximal segment of the artery bridging over the origin of the 1st major diagonal branch and discrete 80% stenosis distal to that. 2. Small circumflex giving rise to only 1 OM branch this vessel however has a proximal 90% lesion. 3. Diffusely diseased right coronary artery with previously deployed stent in the proximal segment with mild loss of lumen but no flow-limiting lesion in that segment. Patient has otherwise diffusely diseased RCA approximately 50-60% diffuse stenosis in the 3rd portion of the artery. Mi
--- NOTE | 2021-06-01 10:22 | PM.IMPN ---
Progress Note: A&P Additional Plan 75-year-old gentleman who presented to the emergency room after having laboratories performed at outside facility and being told by his business banking manager to come to emergency room. Patient has a known history of end-stage renal disease and is on hemodialysis Sunday, Sunday, Sunday. (1) Symptomatic anemia: Patient's hemoglobin is 8.0 with hematocrit 25.3. Reticulocyte count was performed and it resulted at 0.06. s/p 1 unit of PRBC Will transfuse another unit today to keep Hemoglobin >8 Hematology has been consulted and appreciate recommendations. Plan for bone marrow aspiration and biopsy today (2) End stage renal disease: Patient's business banking manager consulted for inpatient hemo dialysis Sunday, Sunday, and Sunday. Continue dialysis as scheduled inpatient as per nephrology (3) Hypertension: Stable (4) Nonrheumatic aortic (valve) stenosis: plan as per cardiology (5) Shoulder pain: Has bilateral shoulder pain for a while. X-ray shoulder done earlier shows moderate osteoarthritis This could also be related to cervical disc disease referred pain (6)NSTEMI: Appreciate cardiology help Plan for cardiac cath today Rest of recommendations as per cardiology (7) DVT ppx: on heparin drip pre cath (8)Code:Full (9)Dispo:pending improvement/work up Time Spent With Patient Time with patient: 15 - 25 minutes Subjective Date/time seen: 06/01/21 10:22 Was getting ready to go down for cath today. No acute events overnight, says he is getting bored Review of Systems Constitutional: Constitutional: Reports no additional constitutional complaints Eyes: Eyes: Reports no additional eye complaints ENT: Reports system reviewed and no additional complaints, except as documented Cardiovascular: Cardiovascular: Reports no additional cardiovascular complaints Respiratory: Respiratory: Reports no additional respiratory complaints Gastrointestinal: Gastrointestinal: Reports no additional gastrointestinal complaints Neurologic: Reports system reviewed and no additional complaints, except as documented Exam Const: General: no acute distress Other: on nasal canula O2 support HENMT: Mouth: Yes moist mucous membranes Eyes: EOM: EOMs intact bilaterally Neck: Neck: supple Resp: Other: decreased breath sounds B/L Cardio: Rate: regular rate Rhythm: regular rhythm GI: GI Palp: Yes Soft to palpation Auscultation: normal bowel sounds Extrem: Other: pedal edema present Psych: Mental Status: mental status grossly normal Objective Data Vital Signs Vital Signs: Vital Signs - 24 hr 05/31/21 11:47 05/31/21 12:00 05/31/21 14:00 Temperature 98.1 F Pulse Rate 65 60 57 L Respiratory Rate 18 Blood Pressure 138/58 L Pulse Oximetry 100 96 05/31/21 16:00 05/31/21 18:00 05/31/21 19:47 Temperature 98 F 97.9 F Pulse Rate 59 L 62 65 Respiratory Rate 14 20 Blood Pressure 136/55 L 141/60 H Pulse Oximetry 96 100 05/31/21 19:50 05/31/21 20:00 05/31/21 20:37 Temperature Pulse Rate 70 72 Respiratory Rate 20 Blood Pressure Pulse Oximetry 97 100 05/31/21 22:00 05/31/21 23:13 06/01/21 00:00 Temperature 97.6 F Pulse Rate 64 65 62 Respiratory Rate 18 18 Blood Pressure 136/65 Pulse Oximetry 98 98 06/01/21 02:00 06/01/21 04:00 06/01/21 06:00 Temperature 97.8 F Pulse Rate 58 L 55 L 55 L Respiratory Rate 18 Blood Pressure 138/55 L Pulse Oximetry 97 06/01/21 07:59 06/01/21 08:00 06/01/21 08:45 Temperature 98.2 F Pulse Rate 59 L 62 Respiratory Rate 12 Blood Pressure 145/62 H Pulse Oximetry 97 98 Intake/Output Intake/Output: Intake & Output 05/29/21 05/30/21 05/31/21 06/01/21 23:59 23:59 23:59 23:59 Intake Total 1870 720 758.1 277.6 Output Total 100 0 Balance 1870 620 758.1 277.6 Meds/Results Medications: Active Medications Generic Name Dose Route Start Last Admin Trade Name Freq PRN Reason Stop Dose Ad
--- NOTE | 2021-06-01 10:27 | PM.PNCARD ---
Progress Note: A&P Additional Plan 75-year-old man with: Complex, diffuse coronary artery disease not surprisingly in this gentleman with longstanding renal failure. Proximal RCA stent deployed in the past is patent and he has [id number] diffuse disease throughout the right coronary artery. Found to have heavily calcified LAD with high-grade stenosis which is complex and bridging over the major diagonal branch as well as high-grade stenosis in the only significant OM circumflex branch that he has. He is having no symptoms to suggest acute coronary syndrome and was admitted to the hospital by his broadband technician because of anemia. Presumably he has anemia of chronic renal failure. At this point I will continue his beta-vinnie KATHERYN-inhibitor or an aspirin as well as statin. I will add clopidogrel to his regimen for optimal guideline directed medical therapy. Revascularization for this gentleman would be challenging and high risk and would probably involve PCI of the LAD disease as well as the OM branch. This would also potentially involve aortic valve replacement ( TAVR). as he is not symptomatic with this he can see consultants at a tertiary care center as an outpatient for further evaluation and consultation. Plans are for dialysis later today. Previously he had been nifedipine as well for antihypertensive benefit. Depending on his vital signs we may re titrate some of that in for further medical therapy of his coronary disease. Reinaldo Hagen MD [facility] Subjective Date/time seen: date of service:06/01/21 10:27 Interval history: HPI: Mr. Cheek there is a 75-year-old gentleman who presented to the emergency room after having laboratories performed at outside facility and being told by his broadband technician to come to emergency room. Patient has a known history of end-stage renal disease and is on hemodialysis Sunday, Sunday, Sunday. Patient had laboratories drawn yesterday and it was noted the patient had a hemoglobin of 7.6. Patient was notified by his broadband technician to come to the hospital. Patient states that he has been feeling very fatigued over the last few months and he is not sure why. Patient states he has chronic insomnia so this is not a change for him. Patient denies any obvious signs and symptoms of bleeding. Patient denies any hematemesis, melena, hematochezia, or hematuria. Patient denies any chest pain, shortness of breath, lightheadedness, dizziness, syncopal, or near syncopal episodes. Patient states he has just progressively gotten weaker. Patient states that he has become weak enough that it is difficult for him to walk at times. Patient has a known history of coronary artery disease status post stent placement, hypertension, diabetes mellitus, diabetic retinopathy, and glaucoma. Patient is a former smoker smoked approximately half a pack of cigarettes a day for 40 years. Patient states he has been taking all medications at home without any difficulty and has been attending all dialysis treatments without any difficulty. Date of service 05/30/2021: Had significant shortness of breath earlier today but no longer short of breath. No chest pain. Date of service 05/31/2021: Feeling much better today. He is not short of breath. Comfortable on 1L O2 today. Denies any chest pain. Date of service 06/01/2021: Patient without specific cardiac symptoms. Underwent coronary angiography a short time ago following his bone marrow aspiration. Exam Const: General: comfortable and no acute distress Other: Able to lie flat HENMT: General nose exam: Normal nares present and no epistaxis Mouth: Yes moist mucous membranes Eyes: Sclera: sclerae normal Pupils: Equal, round and reactive pupils present Neck: Neck: supple and no JVD Carotids: no bruits Resp: Auscultation: clear to auscultation bilaterally and lung sounds not diminished Other: No chest wall tenderness Cardio: Rate: regular rate Rhythm: regula
--- NOTE | 2021-06-01 10:47 | PCPTNOTE ---
The patient treatment was not able to be completed on 06/01/2021. Per RN patient had a bone biopsy this morning, then cardiac cath, and then patient will have dialysis so patient will be unable to be seen for therapy this date. Will plan to continue treatment per plan of care.
[2021-06-01 11:49] LABS: Erythropoietin (EPO) 8.5 mIU/mL (2.6-18.5)
--- NOTE | 2021-06-01 12:31 | PC.NURSE ---
Pt returned from [facility]
[2021-06-01 13:40] LABS: Activated Clotting Time 136 SEC (74-137)
[2021-06-01] MEDS: SEVELAMER CARBONATE 800 MG TABLET 1600 MG PO ×2 (14:09→20:51)
--- NOTE | 2021-06-01 15:40 | PC.NURSE ---
Pt to dialysis via bed
[2021-06-01] MEDS: TUBING, BLOOD PLUM PUMP TUBING 1 EACH XX (16:02)
--- NOTE | 2021-06-01 16:32 | PM.PNNEP ---
Progress Note: A&P Assessment and Plan (1) End stage renal disease: Code(s): N18.6 - End stage renal disease Status: Chronic Assessment and Plan: HD today and continue M/W/F schedule follow electroltyes, volume status, and clearance (2) Non-STEMI (non-ST elevated myocardial infarction): Code(s): I21.4 - Non-ST elevation (NSTEMI) myocardial infarction Status: Acute Assessment and Plan: as noted by evidence to date Echo results noted s/p cardiac catheterization with results noted Cardiology following (3) Symptomatic anemia: Code(s): D64.9 - Anemia, unspecified Status: Acute Assessment and Plan: partly related to ESRD no evidence of GI loss on high dose Epogen with HD Hematology recommendations noted - s/p bone marrow biopsy today follow H/H (4) Hypertension: Code(s): I10 - Essential (primary) hypertension Status: Chronic Assessment and Plan: reasonable control at this time continue home medications follow trend of hemodynamics (5) Diabetes: Code(s): E11.9 - Type 2 diabetes mellitus without complications Status: Chronic Assessment and Plan: follow accuchecks glycemic control Will continue to follow. Subjective Date/time seen: 06/01/21 16:32 Tolerating dialysis at the time of my visit (seen on HD at 4:00PM); busy morning with bone marrow biopsy and cardiac catheterization earlier today - tolerated these procedure reasonably well also; no apparent distress noted; no events overnight. Exam Narrative: General: WD/WN male in NAD Heart: normal S1 and S2; no rub Lungs: decreased at bases Abdomen: soft, nontender, nondistended, positive bowel sounds Extremities: no cyanosis or clubbing; trace edema Skin: no nodules or rash Objective Data Vital Signs Vital Signs: Vital Signs Temp Pulse Resp BP Pulse Ox 06/01/21 16:30 36.7 C 60 16 128/55 L 06/01/21 16:15 63 123/60 06/01/21 16:00 61 124/60 06/01/21 15:56 36.7 C 67 16 118/54 L 06/01/21 15:47 67 118/59 L 06/01/21 15:30 97 06/01/21 15:00 36.6 C 65 12 124/45 L 97 06/01/21 14:00 36.6 C 74 12 136/61 95 06/01/21 13:06 36.6 C 62 12 132/53 L 100 06/01/21 12:30 61 95 06/01/21 12:15 37.1 C 62 12 140/49 L 96 06/01/21 12:00 60 13 136/60 100 06/01/21 11:45 60 13 149/60 H 100 06/01/21 11:30 59 L 14 139/56 L 100 06/01/21 11:15 59 L 13 137/57 L 100 06/01/21 11:00 58 L 12 138/45 L 98 06/01/21 10:55 58 L 13 132/55 L 99 06/01/21 10:50 58 L 13 136/54 L 98 06/01/21 10:45 58 L 13 143/54 H 98 06/01/21 10:40 58 L 13 141/56 H 98 06/01/21 10:35 59 L 13 140/57 L 96 06/01/21 10:25 36.2 C L 65 20 135/55 L 93 06/01/21 08:45 62 06/01/21 08:00 36.8 C 59 L 12 145/62 H 98 06/01/21 07:59 97 06/01/21 06:00 55 L 06/01/21 04:00 36.6 C 55 L 18 138/55 L 97 06/01/21 02:00 58 L 06/01/21 00:00 62 18 98 05/31/21 23:13 36.4 C 65 18 136/65 98 05/31/21 22:00 64 05/31/21 20:37 72 05/31/21 20:00 70 20 100 05/31/21 19:50 97 05/31/21 19:47 36.6 C 65 20 141/60 H 100 05/31/21 18:00 62 Intake/Output Intake/Output: Intake & Output 05/29/21 05/30/21 05/31/21 06/01/21 23:59 23:59 23:59 23:59 Intake Total 1870 720 758.1 817.6 Output Total 100 0 Balance 1870 620 758.1 817.6 Meds/Results Medications: Active Medications Generic Name Dose Route Start Last Admin Trade Name Freq PRN Reason Stop Dose Admin Acetaminophen 1,000 mg 04/09/22 21:18 05/29/21 12:42 Acetaminophen 500 Mg Tablet PO 1,000 mg Q6H PRN Administration Mild Pain (1-3) or Fever Hydrocodone Bitart/Acetaminophen 1 tab 05/29/21 14:05 05/31/21 20:37 Hydrocodone/Acetaminophen (*Crx) 5-325 Mg Tablet PO 1 tab Q6H PRN Administration Pain Rated 4-6 Aspirin 81
--- NOTE | 2021-06-01 17:47 | WPDONCPN ---
Progress Note: A/P - Additional Plan Macrocytic anemia. Patient has history of end-stage renal disease on hemodialysis. Bone marrow biopsy was performed due to reticulocytopenia and elevated MCV concerning for myelodysplastic syndrome. Pathology is pending. TSH came back normal. Methylmalonic acid is pending. Patient will continue Epogen with hemodialysis. Follow-up with me in the office to discuss pathology report and management. Coronary artery disease. Cardiology input is noted. Plavix has been started. End-stage renal disease. Patient is on hemodialysis. - Time Spent With Patient Total time spent is greater than 50% in coordination of care (as documented) at patient's floor/unit and/or counseling patient: 15 - 25 minutes Subjective Interval history: Macrocytic anemia End-stage renal disease on hemodialysis Review of Systems - Review of Systems Patient was seen in the dialysis room. Complain of tiredness and fatigue but denies any bleeding and bruising. He tolerated the bone marrow biopsy procedure well. Denies any other new complaints. - Neurologic Reports system reviewed and no additional complaints, except as documented, Reports hearing normal, Reports weakness, Denies headache(s) Exam Vital signs: Temp Pulse Resp BP Pulse Ox 36.4 C 75 16 154/66 H 97 06/01/21 17:01 06/01/21 17:30 06/01/21 17:01 06/01/21 17:30 06/01/21 15:30 Narrative: Lungs are clear to auscultation bilaterally Cardiovascular regular rate rhythm no murmurs Abdomen soft nontender nondistended bowel sounds are positive Extremities no edema PN: Objective Data - Labs CBC & Chem 7: 06/01/21 02:38 06/01/21 02:38 Labs: Laboratory Results - last 24 hr 05/29/21 05/29/21 05/31/21 10:56 10:56 19:25 WBC RBC Hgb Hct MCV MCH MCHC RDW Plt Count MPV Immature Gran % (Auto) Neut % (Auto) Lymph % (Auto) [place] % (Auto) Eos % (Auto) Baso % (Auto) Lymph # (Auto) [place] # (Auto) Eos # (Auto) Baso # (Auto) Abs Immat Gran (auto) Absolute Neuts (auto) Absolute Nucleated RBC Nucleated RBC % APTT 65.7 H Activ Coag Time Kaolin Sodium Potassium Chloride Carbon Dioxide Anion Gap BUN Creatinine Estim Creat Clear Calc Estimated GFR Glucose Calcium Magnesium Erythropoietin 8.5 Total Bilirubin AST ALT Alkaline Phosphatase Total Protein Albumin CMV IgG Ab 6.70 H Blood Type Antibody Screen Crossmatch 06/01/21 06/01/21 06/01/21 02:38 02:38 02:38 WBC 7.4 RBC 2.22 L Hgb 7.9 L Hct 24.9 L MCV 112.2 H MCH 35.6 H MCHC 31.7 L RDW 15.9 H Plt Count 168 MPV 10.1 Immature Gran % (Auto) 0.4 Neut % (Auto) 66.1 Lymph % (Auto) 18.6 [place] % (Auto) 7.9 Eos % (Auto) 5.9 H Baso % (Auto) 1.1 Lymph # (Auto) 1.38 [place]well # (Auto) 0.6 Eos # (Auto) 0.4 H Baso # (Auto) 0.1 Abs Immat Gran (auto) 0.03 Absolute Neuts (auto) 4.9 Absolute Nucleated RBC 0.0 Nucleated RBC % 0.0 APTT 109.0 H Activ Coag Time Kaolin Sodium 132 L Potassium 4.0 Chloride 93 L Carbon Dioxide 29 Anion Gap 10 BUN 59 H D Creatinine 7.40 H Estim Creat Clear Calc 7 Estimated GFR 7 L Glucose 134 H Calcium 8.4 Magnesium 1.9 Erythropoietin Total Bilirubin 0.5 AST 16 L ALT 8 Alkaline Phosphatase 49 Total Protein 6.0 L Albumin 3.5 CMV IgG Ab Blood Type Antibody Screen Crossmatch 06/01/21 06/01/21 06/01/21 08:27 08:27 10:12 WBC RBC Hgb Hct MCV MCH MCHC RDW Plt Count MPV Immature Gran % (Auto) Neut % (Auto) Lymph % (Auto) [place] % (Auto) Eos % (Auto) Baso % (Auto) Lymph # (Auto) [place]well # (Auto) Eos # (Auto) Baso # (Auto) Abs Immat Gran (auto) Absolute Neuts (auto)
[2021-06-01] MEDS: EPOETIN ALFA-EPBX 10,000 UNITS/ML VIAL 10000 UNITS IV PUSH (18:35)
[2021-06-01 20:37] LABS: Red Blood Cell Folate 510 ng/mL RBC (>280)
[2021-06-01] MEDS: MELATONIN 5 MG TABLET PO (20:51)
[2021-06-01] MEDS: HYDROcodone/acetaminophen (*CRX) 5-325 MG TABLET 1 TAB PO (20:52)
[2021-06-01 22:11] LABS: Haptoglobin 156 mg/dL (43-212)
[2021-06-02] VITALS (14 sets, daily range): BP systolic 134–155; BP diastolic 55–61; PULSE 58–100; RESP 18–28; TEMP 35.6–36.6; O2SAT 93–100
[2021-06-02 05:01] LABS: Basophils Percent Auto 0.1 % (0.2-1.2); Hematocrit 31.1 % (42.0-52.0); Hemoglobin 10.1 g/dL (14.0-18.0); Immature Granulocyte Absolute 0.04 K/mm3 (0.00-0.031); Immature Granulocyte Percent A 0.5 % (0-0.5); Mean Corpuscular HGB Conc 32.5 g/dl (32-36); Mean Corpuscular Hemoglobin 34.8 pg (26-34); Mean Corpuscular Volume 107.2 fl (80-100); Monocytes Absolute Auto 0.7 K/mm3 (0.1-0.6); Monocytes Percent Auto 7.7 % (2.6-8.5); Neutrophils Absolute Auto 7.3 K/mm3 (1.3-6.7); Neutrophils Percent Auto 84.7 % (45.5-73.1); Platelet Count Result 194 k/mm3 (150-375); Red Cell Distribution Width 17.2 % (11.5-14.5); White Blood Count 8.6 K/mm3 (4.5-10.0)
[2021-06-02 05:37] LABS: Anion Gap 11 mmol/L (8-16); Blood Urea Nitrogen 36 mg/dL (9-20); Calcium 8.8 mg/dL (8.4-10.2); Carbon Dioxide 29 mmol/L (22-30); Chloride 96 mmol/L (98-107); Estimated CRCL calculation 10 ml/min; Estimated Glomerular Filt Rate 11; Glucose 156 mg/dL (65-110); Magnesium 1.9 mg/dL (1.6-2.3); Potassium 4.1 mmol/L (3.4-5.0); Sodium 136 mmol/L (137-145)
[2021-06-02] MEDS: SEVELAMER CARBONATE 800 MG TABLET 1600 MG PO ×3 (08:39→16:20)
[2021-06-02] MEDS: lisinopriL 20 MG TABLET PO (08:40)
[2021-06-02] MEDS: ASPIRIN 81 MG ENTERIC TABLET PO (08:40)
[2021-06-02] MEDS: METOPROLOL SUCCINATE EXT REL 25 MG TABCR PO ×2 (08:40→21:04)
[2021-06-02] MEDS: ATORVASTATIN 40 MG TABLET PO (08:40)
[2021-06-02] MEDS: CLOPIDOGREL BISULFATE 75 MG TABLET PO (08:40)
--- NOTE | 2021-06-02 09:46 | PM.PNNEP ---
Progress Note: A&P Additional Plan 1. The patient has end-stage renal disease. This is due to hypertension and diabetes. He is due for dialysis tomorrow. His volume status looks okay today and his electrolytes are okay. 2. The patient has anemia. Hemoglobin is low, reticulocyte count is low, Iron is satisfactory. Dr Duran on the case. Now getting Epogen. Hemoglobin up to 10. 3. The patient has shoulder pain. X-rays negative. Shoulders are better on their own. 4. his blood pressure is ranging from 120-160. Will keep an eye on this. 5. Diabetes this will be managed by the hospitalists 6. Coronary disease. Getting medical therapy. No stent needed 7. Renal osteodystrophy Phosphorus doing pretty well. Will repeat tomorrow Subjective Date/time seen: 06/02/21 09:46 Interval history: Since I last saw, the patient had positive troponins and had a cardiac catheterization. This showed medical disease. No stent needed. He is getting intensive medical therapy now. The patient feels better. He is sleeping better. He is not having any shortness of breath. His shoulder pain is gone. Exam Narrative: General: WD/WN male in NAD Heart: normal S1 and S2; no rub Lungs: decreased at bases Abdomen: soft, nontender, nondistended, positive bowel sounds Extremities: no cyanosis or clubbing; trace edema Skin: no rash or subQ nodules Objective Data Vital Signs Vital Signs: Vital Signs - 24 hr 06/01/21 10:25 06/01/21 10:35 06/01/21 10:40 Temperature 36.2 C L Pulse Rate 65 59 L 58 L Respiratory Rate 20 13 13 Blood Pressure 135/55 L 140/57 L 141/56 H Pulse Oximetry 93 96 98 06/01/21 10:45 06/01/21 10:50 06/01/21 10:55 Temperature Pulse Rate 58 L 58 L 58 L Respiratory Rate 13 13 13 Blood Pressure 143/54 H 136/54 L 132/55 L Pulse Oximetry 98 98 99 06/01/21 11:00 06/01/21 11:15 06/01/21 11:30 Temperature Pulse Rate 58 L 59 L 59 L Respiratory Rate 12 13 14 Blood Pressure 138/45 L 137/57 L 139/56 L Pulse Oximetry 98 100 100 06/01/21 11:45 06/01/21 12:00 06/01/21 12:15 Temperature 37.1 C Pulse Rate 60 60 62 Respiratory Rate 13 13 12 Blood Pressure 149/60 H 136/60 140/49 L Pulse Oximetry 100 100 96 06/01/21 12:30 06/01/21 13:06 06/01/21 14:00 Temperature 36.6 C 36.6 C Pulse Rate 61 62 74 Respiratory Rate 12 12 Blood Pressure 132/53 L 136/61 Pulse Oximetry 95 100 95 06/01/21 15:00 06/01/21 15:30 06/01/21 15:42 Temperature 36.6 C 36.7 C Pulse Rate 65 67 Respiratory Rate 12 16 Blood Pressure 124/45 L 111/60 Pulse Oximetry 97 97 06/01/21 15:47 06/01/21 15:56 06/01/21 16:00 Temperature 36.7 C Pulse Rate 67 67 61 Respiratory Rate 16 Blood Pressure 118/59 L 118/54 L 124/60 Pulse Oximetry 06/01/21 16:15 06/01/21 16:30 06/01/21 16:45 Temperature 36.7 C 36.6 C Pulse Rate 63 60 59 L Respiratory Rate 16 17 Blood Pressure 123/60 128/55 L 129/62 Pulse Oximetry 06/01/21 17:00 06/01/21 17:01 06/01/21 17:15 Temperature 36.4 C 36.4 C Pulse Rate 62 62 82 Respiratory Rate 16 16 Blood Pressure 141/65 H 141/65 H 140/58 L Pulse Oximetry 06/01/21 17:30 06/01/21 17:45 06/01/21 18:00 Temperature Pulse Rate 75 92 63 Respiratory Rate Blood Pressure 154/66 H 137/70 139/71 Pulse Oximetry 06/01/21 18:15 06/01/21 18:30 06/01/21 18:45 Temperature Pulse Rate 75 64 68 Respiratory Rate Blood Pressure 144/70 H 145/71 H 161/75 H Pulse Oximetry 06/01/21 18:53 06/01/21 19:15 06/01/21 20:00 Temperature 36.6 C 36.6 C Pulse Rate 71 72 88 Respiratory Rate 17 18 Blood Pressure 163/75 H 157/72 H 120/70 Pulse Oximetry 97 06/01/21 20:51 06/01/21 22:00 04/13/22 23:46 Temperature Pulse Rate 72 66 66 Respiratory Rate 18 Blood Pressure Pulse Oximetry 97 06/01/21 23:52 06/02/21 02:00 06/02/21 04:00 Temperature 36.6 C 36.4 C Pulse Rate 67 62 74 Respiratory Rate 18
--- NOTE | 2021-06-02 10:43 | PM.PNCARD ---
Progress Note: A&P Assessment and Plan (1) Nonrheumatic aortic (valve) stenosis: Code(s): I35.0 - Nonrheumatic aortic (valve) stenosis Status: Acute Assessment and Plan: Echo shows moderate aortic valve stenosis with a peak velocity of 253 cm/s, mean gradient of 13 mmHg, and aortic valve area of 1.1 cm2. He also has moderate MR. May require TAVR - outpatient referral to [facility] (2) Hypertension: Code(s): I10 - Essential (primary) hypertension Status: Chronic Assessment and Plan: Continue lisinopril, metoprolol, minoxidil, nifedipine. (3) End stage renal disease: Code(s): N18.6 - End stage renal disease Status: Chronic Assessment and Plan: Hemodialysis MWF. (4) Non-STEMI (non-ST elevated myocardial infarction): Code(s): I21.4 - Non-ST elevation (NSTEMI) myocardial infarction Status: Acute Assessment and Plan: Aspirin 81 mg p.o. daily, metoprolol, atorvastatin. Coronary angiogram yesterday showed a heavily calcified lesion in the LAD with 80-90% stenosis as well as disease in the 1st OM. Also has diffuse disease of the RCA but no flow-limiting lesions. Plan is for referral to interventional cardiology at [facility] for PCI of complex heavily calcified LAD lesion and OM1 disease, also possibly TAVR (5) Symptomatic anemia: Code(s): D64.9 - Anemia, unspecified Status: Acute Assessment and Plan: Probably related to end-stage renal disease. Uderwent bone marrow biopsy yesterday, Hematology following. (6) Coronary artery disease: Code(s): I25.10 - Atherosclerotic heart disease of [place] coronary artery without angina pectoris Status: Inactive Assessment and Plan: Previous PCI. Additional Plan Subjective Date/time seen: 06/02/21 10:43 Interval history: Cardiology follow up for CAD, elevated troponin, He underwent a LHC yesterday. Feels fine today. Denies any chest pain or shortness of breath. I reviewed the plan of outpatient referral to [facility] for PCI Review of Systems Review of Systems: All systems reviewed & are unremarkable except as noted in HPI and below Constitutional: Constitutional: Denies headache(s) and Reports weakness Eyes: Eyes: Denies blurry vision ENT: Reports Normal hearing present, Denies headache(s) and Denies neck pain Cardiovascular: Cardiovascular: Denies chest pain and Reports dyspnea Respiratory: Respiratory: Reports dyspnea Gastrointestinal: Gastrointestinal: Denies abdominal pain Genitourinary: Genitourinary: Denies dysuria Musculoskeletal: Musculoskeletal: Denies neck pain Integumentary/Breasts: Skin/Breast: Denies dry skin Neurologic: Reports Normal hearing present, Denies headache(s) and Reports weakness Psychiatric: Psychiatric: Denies anxiety Endocrine: Endocrine: Denies change in body appearance Hematologic/Lymphatic: Hematologic/Lymphatic: Denies easy bleeding Allergic/Immunologic: Allergic/Immunologic: Denies GI upset with certain foods Exam Const: General: comfortable and no acute distress Other: Able to lie flat HENMT: General nose exam: Normal nares present and no epistaxis Mouth: Yes moist mucous membranes Eyes: Sclera: sclerae normal Pupils: Equal, round and reactive pupils present Neck: Neck: supple and no JVD Carotids: no bruits Resp: Auscultation: clear to auscultation bilaterally and lung sounds not diminished Other: No chest wall tenderness Cardio: Rate: regular rate Rhythm: regular rhythm Heart sounds: no gallops, Murmur heart sound present (TAYO at base) and no rubs GI: Auscultation: normal bowel sounds Skin: General skin exam: normal color, rashes and/or lesions noted and no erythema Other: Arterial access site free from bleeding, hematoma, bruit. Neuro: Cranial nerves: Yes Equal, round and reactive pupils present and Yes Normal hearing present Speech: normal speech Other: No obvious focal deficit or facial asymmetry Extrem:
[2021-06-02 11:15] LABS: Methylmalonic Acid 383 nmol/L (87-318)
--- NOTE | 2021-06-02 12:50 | PC.NURSE ---
This patient, Isidoro Cheek, was transferred to [[facility] ] on 06/02/21 at 1250. Personal belongings sent with patient. Report given to [BRAYDEN Hutchison @ [phone] ]. Appropriate documentation sent with patient. Delay in transfer d/t patient eating lunch
--- NOTE | 2021-06-02 14:31 | PC.NURSE ---
Patient transferred from IMU to [facility] at 1255. Patient arrived A&O and denying needs.
--- NOTE | 2021-06-02 16:12 | PM.IMPN ---
Progress Note: A&P Additional Plan 75-year-old gentleman who presented to the emergency room after having laboratories performed at outside facility and being told by his electric lift truck driver to come to emergency room. Patient has a known history of end-stage renal disease and is on hemodialysis Sunday, Sunday, Sunday. (1) Symptomatic anemia: Patient's hemoglobin is 8.0 with hematocrit 25.3. Reticulocyte count was performed and it resulted at 0.06. s/p 2 unit of PRBC Hematology has been consulted and appreciate recommendations. s/p bone marrow aspiration and biopsy yesterdy (2) End stage renal disease: Patient's electric lift truck driver consulted for inpatient hemo dialysis Sunday, Sunday, and Sunday. Continue dialysis as scheduled inpatient as per nephrology (3) Hypertension: Stable (4) Nonrheumatic aortic (valve) stenosis: plan as per cardiology May require TAVR - outpatient referral to [facility] (5) Shoulder pain: Has bilateral shoulder pain for a while. X-ray shoulder done earlier shows moderate osteoarthritis This could also be related to cervical disc disease referred pain (6)NSTEMI: Appreciate cardiology help s/p cardiac cath yesterday Coronary angiogram yesterday showed a heavily calcified lesion in the LAD with 80-90% stenosis as well as disease in the 1st OM. Also has diffuse disease of the RCA but no flow-limiting lesions. Plan is for referral to interventional cardiology at [facility] for PCI of complex heavily calcified LAD lesion and OM1 disease, also possibly TAVR c/w Aspirin 81 mg p.o. daily, metoprolol, atorvastatin. (7) DVT ppx: on heparin SQ (8)Code:Full (9)Dispo:will get overnight sleep study, arrange for night time O2 if needed and then likely discharge him tomorrow Time Spent With Patient Time with patient: 15 - 25 minutes Time Spent With Patient Time with patient: 15 - 25 minutes Subjective Date/time seen: 06/02/21 16:12 no acute events overnight, desaturation events durign night time Review of Systems Review of Systems: Constitutional: Constitutional: Reports no additional constitutional complaints Eyes: Eyes: Reports no additional eye complaints ENT: Reports system reviewed and no additional complaints, except as documented Cardiovascular: Cardiovascular: Reports no additional cardiovascular complaints Respiratory: Respiratory: Reports no additional respiratory complaints Gastrointestinal: Gastrointestinal: Reports no additional gastrointestinal complaints Neurologic: Reports system reviewed and no additional complaints, except as documented Exam Narrative: Const: General: no acute distress Other: on nasal canula O2 support HENMT: Mouth: Yes moist mucous membranes Eyes: EOM: EOMs intact bilaterally Neck: Neck: supple Resp: Other: decreased breath sounds B/L Cardio: Rate: regular rate Rhythm: regular rhythm GI: GI Palp: Yes Soft to palpation Auscultation: normal bowel sounds Extrem: Other: pedal edema present Psych: Mental Status: mental status grossly normal Objective Data Vital Signs Vital Signs: Vital Signs - 24 hr 06/01/21 16:15 06/01/21 16:30 06/01/21 16:45 Temperature 98.0 F 97.8 F Pulse Rate 63 60 59 L Respiratory Rate 16 17 Blood Pressure 123/60 128/55 L 129/62 Pulse Oximetry 06/01/21 17:00 06/01/21 17:01 06/01/21 17:15 Temperature 97.6 F 97.6 F Pulse Rate 62 62 82 Respiratory Rate 16 16 Blood Pressure 141/65 H 141/65 H 140/58 L Pulse Oximetry 06/01/21 17:30 06/01/21 17:45 06/01/21 18:00 Temperature Pulse Rate 75 92 63 Respiratory Rate Blood Pressure 154/66 H 137/70 139/71 Pulse Oximetry 06/01/21 18:15 06/01/21 18:30 06/01/21 18:45 Temperature Pulse Rate 75 64 68 Respiratory Rate Blood Pressure 144/70 H 145/71 H 161/75 H Pulse Oximetry 06/01/21 18:53 06/01/21 19:15 06/01/21 20:00 Temperature 97.9 F 97.8 F Pulse Rate 71 72 88 Respiratory Rate 17 18 Blood Pressure 163/75 H 157/72 H 120/70 Pulse Oxi
[2021-06-02 16:33] LABS: Glucose Point of Care 131 mg/dl (65-105)
[2021-06-02 19:04] LABS: CMV IgM Antibody <30.00 AU/mL (<30.00)
[2021-06-02] MEDS: MELATONIN 5 MG TABLET PO (21:04)
[2021-06-02] MEDS: HEPARIN SODIUM 5,000 UNITS/ML VIAL 5000 UNITS SUB-Q (21:18)
[2021-06-02] MEDS: TIMOLOL MALEATE 0.5% OP SOLN 5 ML BOTTLE 1 DROP EACH EYE (23:44)
[2021-06-02] MEDS: BRIMONIDINE TARTRATE 0.2% OP SOLN 5 ML BTL 1 DROP EACH EYE (23:44)
[2021-06-02] MEDS: LATANOPROST 0.005% OP SOLN 2.5 ML BTL 1 DROP EACH EYE (23:44)
[2021-06-03] VITALS (21 sets, daily range): BP systolic 125–163; BP diastolic 56–84; PULSE 55–71; RESP 16–18; TEMP 36.4–37.2; O2SAT 95–100
[2021-06-03 05:53] LABS: Albumin Level 3.5 g/dL (3.5-5.1); Anion Gap 9 mmol/L (8-16); Blood Urea Nitrogen 58 mg/dL (9-20); Calcium 8.6 mg/dL (8.4-10.2); Carbon Dioxide 27 mmol/L (22-30); Chloride 95 mmol/L (98-107); Estimated CRCL calculation 8 ml/min; Estimated Glomerular Filt Rate 8; Glucose 131 mg/dL (65-110); Phosphorus 4.3 mg/dL (2.5-4.5); Potassium 4.1 mmol/L (3.4-5.0); Sodium 131 mmol/L (137-145)
[2021-06-03 06:08] LABS: Basophils Absolute Auto 0.1 K/mm3 (0.0-0.1); Basophils Percent Auto 0.8 % (0.2-1.2); Eosinophils Absolute Auto 0.4 K/mm3 (0-0.3); Hematocrit 28.8 % (42.0-52.0); Hemoglobin 9.4 g/dL (14.0-18.0); Immature Granulocyte Absolute 0.03 K/mm3 (0.00-0.031); Immature Granulocyte Percent A 0.4 % (0-0.5); Lymphocytes Absolute Auto 1.23 K/mm3 (0.9-3.2); Lymphocytes Percent Auto 16.5 % (18.3-44.2); Mean Corpuscular HGB Conc 32.6 g/dl (32-36); Mean Corpuscular Hemoglobin 34.7 pg (26-34); Mean Corpuscular Volume 106.3 fl (80-100); Mean Platelet Volume 10.2 fl (7.4-10.4); Monocytes Absolute Auto 0.4 K/mm3 (0.1-0.6); Monocytes Percent Auto 5.9 % (2.6-8.5); Neutrophils Absolute Auto 5.3 K/mm3 (1.3-6.7); Neutrophils Percent Auto 71.4 % (45.5-73.1); Platelet Count Result 171 k/mm3 (150-375); Red Blood Count 2.71 M/mm3 (4.6-6.20); White Blood Count 7.5 K/mm3 (4.5-10.0)
[2021-06-03] MEDS: CLOPIDOGREL BISULFATE 75 MG TABLET PO (08:07)
[2021-06-03] MEDS: SEVELAMER CARBONATE 800 MG TABLET 1600 MG PO ×2 (08:07→16:35)
[2021-06-03] MEDS: ASPIRIN 81 MG ENTERIC TABLET PO (08:07)
[2021-06-03] MEDS: METOPROLOL SUCCINATE EXT REL 25 MG TABCR PO (08:07)
[2021-06-03] MEDS: ATORVASTATIN 40 MG TABLET PO (08:07)
[2021-06-03] MEDS: lisinopriL 20 MG TABLET PO (08:08)
[2021-06-03] MEDS: HEPARIN SODIUM 5,000 UNITS/ML VIAL 5000 UNITS SUB-Q (08:12)
--- NOTE | 2021-06-03 09:50 | PM.IMPN ---
Progress Note: A&P Additional Plan 75-year-old gentleman who presented to the emergency room after having laboratories performed at outside facility and being told by his front desk supervisor to come to emergency room. Patient has a known history of end-stage renal disease and is on hemodialysis Sunday, Sunday, Sunday. (1) Symptomatic anemia: Patient's hemoglobin is 8.0 with hematocrit 25.3. Reticulocyte count was performed and it resulted at 0.06. s/p 2 unit of PRBC Hematology has been consulted and appreciate recommendations. s/p bone marrow aspiration and biopsy yesterdy (2) End stage renal disease: Patient's front desk supervisor consulted for inpatient hemo dialysis Sunday, Sunday, and Sunday. Continue dialysis as scheduled inpatient as per nephrology (3) Hypertension: Stable (4) Nonrheumatic aortic (valve) stenosis: plan as per cardiology May require TAVR - outpatient referral to [facility] (5) Shoulder pain: Has bilateral shoulder pain for a while. X-ray shoulder done earlier shows moderate osteoarthritis This could also be related to cervical disc disease referred pain (6)NSTEMI: Appreciate cardiology help s/p cardiac cath yesterday Coronary angiogram on 06/01/21, it showed a heavily calcified lesion in the LAD with 80-90% stenosis as well as disease in the 1st OM. Also has diffuse disease of the RCA but no flow-limiting lesions. Plan is for referral to interventional cardiology at [facility] for PCI of complex heavily calcified LAD lesion and OM1 disease, also possibly TAVR c/w Aspirin 81 mg p.o. daily, metoprolol, atorvastatin. (7) DVT ppx: on heparin SQ (8)Code:Full (9)Dispo:will get overnight sleep study, arrange for night time O2 if needed and then likely discharge him tomorrow Time Spent With Patient Time with patient: 15 - 25 minutes Subjective Date/time seen: 06/03/21 09:50 Taken to dialysis. Objective Data Vital Signs Vital Signs: Vital Signs - 24 hr 06/02/21 10:00 06/02/21 12:00 06/02/21 14:09 Temperature 96.0 F L Pulse Rate 62 58 L 60 Respiratory Rate 18 Blood Pressure 134/55 L Pulse Oximetry 99 06/02/21 16:00 06/02/21 20:00 06/02/21 20:56 Temperature 97.8 F Pulse Rate 72 60 63 Respiratory Rate 18 Blood Pressure 147/61 H Pulse Oximetry 100 100 06/02/21 21:04 06/02/21 21:56 06/03/21 00:00 Temperature Pulse Rate 100 71 Respiratory Rate Blood Pressure Pulse Oximetry 93 06/03/21 04:00 06/03/21 06:15 Temperature 97.5 F L Pulse Rate 59 L 62 Respiratory Rate 16 Blood Pressure 151/60 H Pulse Oximetry 100 Intake/Output Intake/Output: Intake & Output 05/31/21 06/01/21 06/02/21 06/03/21 23:59 23:59 23:59 23:59 Intake Total 758.1 817.6 680 1010 Output Total 0 3000 50 Balance 758.1 -2182.4 680 960 Meds/Results Medications: Active Medications Generic Name Dose Route Start Last Admin Trade Name Freq PRN Reason Stop Dose Admin Acetaminophen 1,000 mg 05/28/21 21:18 05/29/21 12:42 Acetaminophen 500 Mg Tablet PO 1,000 mg Q6H PRN Administration Mild Pain (1-3) or Fever Hydrocodone Bitart/Acetaminophen 1 tab 05/29/21 14:05 06/01/21 20:52 Hydrocodone/Acetaminophen (*Crx) 5-325 Mg Tablet PO 1 tab Q6H PRN Administration Pain Rated 4-6 Aspirin 81 mg 05/31/21 09:00 06/03/21 08:07 Aspirin 81 Mg Enteric Tablet PO 81 mg QAM SARITA Administration Atorvastatin Calcium 40 mg 05/29/21 09:00 06/03/21 08:07 Atorvastatin 40 Mg Tablet PO 40 mg DAILY SARITA Administration Brimonidine Tartrate 1 drop 06/03/21 21:00 Brimonidine Tartrate 0.2% Op Soln 5 Ml Btl EACH EYE HS SARITA Clopidogrel Bisulfate 75 mg 06/02/21 09:00 06/03/21 08:07 Clopidogrel Bisulfate 75 Mg Tablet PO 75 mg QAM SARITA Administration Diphenhydramine HCl 25 mg 05/28/21 21:19 05/28/21 21:29 Diphenhydramine Hcl Cap 25 Mg Capsule PO 25 mg HS PRN Administration Insomnia Epoetin Edmond-epbx 10,000 units 05/30/21 17:00
--- NOTE | 2021-06-03 10:29 | PM.PNNEP ---
Progress Note: A&P Additional Plan 1. The patient has end-stage renal disease. This is due to hypertension and diabetes. He is due for dialysis today His volume status looks okay today and his electrolytes are okay. 2. The patient has anemia. Hemoglobin is low, reticulocyte count is low, Iron is satisfactory. Dr Duran on the case. Now getting Epogen. Hemoglobin up to 10. bone marrow biopsy done. 3. The patient has shoulder pain. X-rays negative. Shoulders are better on their own. 4. his blood pressure is ranging from 120-160. Will keep an eye on this. 5. Diabetes this will be managed by the hospitalists 6. Coronary disease. Getting medical therapy. Possibly to get stent at [facility]. 7. Renal osteodystrophy Phosphorus normal Subjective Date/time seen: 06/03/21 10:29 Interval history: The patient feels better. He is sleeping better. no shoulder pain. Eager for discharge. Exam Narrative: General: WD/WN male in NAD Heart: normal S1 and S2; no rub or gallop Lungs: decreased at bases Abdomen: soft, nontender, nondistended, positive bowel sounds Extremities: no cyanosis or clubbing; trace edema Skin: no rash or subQ nodules Objective Data Vital Signs Vital Signs: Vital Signs - 24 hr 06/02/21 12:00 06/02/21 14:09 06/02/21 16:00 Temperature 35.6 C L Pulse Rate 58 L 60 72 Respiratory Rate 18 Blood Pressure 134/55 L Pulse Oximetry 99 06/02/21 20:00 06/02/21 20:56 06/02/21 21:04 Temperature 36.6 C Pulse Rate 60 63 100 Respiratory Rate 18 Blood Pressure 147/61 H Pulse Oximetry 100 100 06/02/21 21:56 06/03/21 00:00 06/03/21 04:00 Temperature Pulse Rate 71 59 L Respiratory Rate Blood Pressure Pulse Oximetry 93 06/03/21 06:15 Temperature 36.4 C L Pulse Rate 62 Respiratory Rate 16 Blood Pressure 151/60 H Pulse Oximetry 100 Intake/Output Intake/Output: Intake & Output 05/31/21 06/01/21 06/02/21 06/03/21 23:59 23:59 23:59 23:59 Intake Total 758.1 817.6 680 1010 Output Total 0 3000 50 Balance 758.1 -2182.4 101 960 Meds/Results Medications: Active Medications Generic Name Dose Route Start Last Admin Trade Name Freq PRN Reason Stop Dose Admin Acetaminophen 1,000 mg 05/28/21 21:18 05/29/21 12:42 Acetaminophen 500 Mg Tablet PO 1,000 mg Q6H PRN Administration Mild Pain (1-3) or Fever Hydrocodone Bitart/Acetaminophen 1 tab 05/29/21 14:05 06/01/21 20:52 Hydrocodone/Acetaminophen (*Crx) 5-325 Mg Tablet PO 1 tab Q6H PRN Administration Pain Rated 4-6 Aspirin 81 mg 05/31/21 09:00 06/03/21 08:07 Aspirin 81 Mg Enteric Tablet PO 81 mg QAM SARITA Administration Atorvastatin Calcium 40 mg 05/29/21 09:00 06/03/21 08:07 Atorvastatin 40 Mg Tablet PO 40 mg DAILY SARITA Administration Brimonidine Tartrate 1 drop 06/03/21 21:00 Brimonidine Tartrate 0.2% Op Soln 5 Ml Btl EACH EYE HS SARITA Clopidogrel Bisulfate 75 mg 06/02/21 09:00 06/03/21 08:07 Clopidogrel Bisulfate 75 Mg Tablet PO 75 mg QAM SARITA Administration Diphenhydramine HCl 25 mg 05/28/21 21:19 05/28/21 21:29 Diphenhydramine Hcl Cap 25 Mg Capsule PO 25 mg HS PRN Administration Insomnia Epoetin Edmond-epbx 10,000 units 05/30/21 17:00 06/01/21 18:35 Epoetin Edmond-Epbx 10,000 Units/Ml Vial IV PUSH 10,000 units [id number]@[id number] SARITA Administration Heparin Sodium (Porcine) 5,000 units 06/02/21 21:00 06/03/21 08:12 Heparin Sodium 5,000 Units/Ml Vial SUB-Q 5,000 units Q12HR SARITA Administration Albumin Human 50 mls @ 999 mls/hr 06/01/21 07:08 Albutein IVPB 07/01/21 07:07 Q10M PRN HYPOTENSION Latanoprost 1 drop 06/02/21 22:05 06/02/21 23:44 Latanoprost 0.005% Op Soln 2.5 Ml Btl EACH EYE 1 drop HS SARITA Administration Lisinopril 20 mg 05/29/21 09:00 06/03/21 08:08 Lisinopril 20 Mg Tablet PO 20 mg DAILY SARITA Administra
--- NOTE | 2021-06-03 11:10 | PCOTNOTE ---
Attempted to see patient this am, however patient was off floor for dialysis.
--- NOTE | 2021-06-03 11:50 | PM.PNCARD ---
Progress Note: A&P Assessment and Plan (1) Nonrheumatic aortic (valve) stenosis: Code(s): I35.0 - Nonrheumatic aortic (valve) stenosis Status: Acute Assessment and Plan: Echo shows moderate aortic valve stenosis with a peak velocity of 253 cm/s, mean gradient of 13 mmHg, and aortic valve area of 1.1 cm2. He also has moderate MR. May require TAVR - outpatient referral to [facility] (2) Hypertension: Code(s): I10 - Essential (primary) hypertension Status: Chronic Assessment and Plan: Continue lisinopril, metoprolol, minoxidil, nifedipine. (3) End stage renal disease: Code(s): N18.6 - End stage renal disease Status: Chronic Assessment and Plan: Hemodialysis MWF. (4) Non-STEMI (non-ST elevated myocardial infarction): Code(s): I21.4 - Non-ST elevation (NSTEMI) myocardial infarction Status: Acute Assessment and Plan: Aspirin 81 mg p.o. daily, metoprolol, atorvastatin. Coronary angiogram yesterday showed a heavily calcified lesion in the LAD with 80-90% stenosis as well as disease in the 1st OM. Also has diffuse disease of the RCA but no flow-limiting lesions. Plan is for referral to interventional cardiology at [facility] for PCI of complex heavily calcified LAD lesion and OM1 disease, also possibly TAVR (5) Symptomatic anemia: Code(s): D64.9 - Anemia, unspecified Status: Acute Assessment and Plan: Probably related to end-stage renal disease. Uderwent bone marrow biopsy yesterday, Hematology following. (6) Coronary artery disease: Code(s): I25.10 - Atherosclerotic heart disease of [place] coronary artery without angina pectoris Status: Inactive Assessment and Plan: Previous PCI. Additional Plan Subjective Date/time seen: 06/03/21 11:50 Interval history: Cardiology follow up for CAD, elevated troponin, He underwent a LHC yesterday. Feels fine today. Denies any chest pain or shortness of breath. I reviewed the plan of outpatient referral to [facility] for PCI Date of service 06/03/2021: Feels the same today. No complaints. Continues to deny chest pain. Eager to be discharged. Review of Systems Review of Systems: All systems reviewed & are unremarkable except as noted in HPI and below Constitutional: Constitutional: Denies headache(s) and Reports weakness Eyes: Eyes: Denies blurry vision ENT: Reports Normal hearing present, Denies headache(s) and Denies neck pain Cardiovascular: Cardiovascular: Denies chest pain and Reports dyspnea Respiratory: Respiratory: Reports dyspnea Gastrointestinal: Gastrointestinal: Denies abdominal pain Genitourinary: Genitourinary: Denies dysuria Musculoskeletal: Musculoskeletal: Denies neck pain Integumentary/Breasts: Skin/Breast: Denies dry skin Neurologic: Reports Normal hearing present, Denies headache(s) and Reports weakness Psychiatric: Psychiatric: Denies anxiety Endocrine: Endocrine: Denies change in body appearance Hematologic/Lymphatic: Hematologic/Lymphatic: Denies easy bleeding Allergic/Immunologic: Allergic/Immunologic: Denies GI upset with certain foods Exam Const: General: comfortable and no acute distress Other: Able to lie flat HENMT: General nose exam: Normal nares present and no epistaxis Mouth: Yes moist mucous membranes Eyes: Sclera: sclerae normal Pupils: Equal, round and reactive pupils present Neck: Neck: supple and no JVD Carotids: no bruits Resp: Auscultation: clear to auscultation bilaterally and lung sounds not diminished Other: No chest wall tenderness Cardio: Rate: regular rate Rhythm: regular rhythm Heart sounds: no gallops, Murmur heart sound present (TAYO at base) and no rubs GI: Auscultation: normal bowel sounds Skin: General skin exam: normal color, rashes and/or lesions noted and no erythema Other: Arterial access site free from bleeding, hematoma, bruit. Neuro: Cranial nerves: Yes Equal, round and reactive pupils
--- NOTE | 2021-06-03 12:26 | PCOTNOTE ---
Attempted to see patient this pm, however patient still off floor for dialysis.
[2021-06-03] MEDS: EPOETIN ALFA-EPBX 10,000 UNITS/ML VIAL 10000 UNITS IV PUSH (14:00)
--- NOTE | 2021-06-03 14:39 | PM.DS ---
DS: Admitting Diagnosis Discharge Date 06/03/2021 Admitting Diagnosis Symptomatic anemia ESRD on HD Hypertension DS: Discharge Diagnosis Discharge Diagnosis (1) Symptomatic anemia: Code(s): D64.9 - Anemia, unspecified Status: Acute (2) Non-STEMI (non-ST elevated myocardial infarction): Code(s): I21.4 - Non-ST elevation (NSTEMI) myocardial infarction Status: Acute (3) Acute pulmonary edema: Code(s): J81.0 - Acute pulmonary edema Status: Acute (4) Shoulder pain: Code(s): M25.519 - Pain in unspecified shoulder Status: Acute (5) End stage renal disease: Code(s): N18.6 - End stage renal disease Status: Chronic DS: Summary Hospital Course Hospital Course: 75-year-old gentleman who presented to the emergency room after having laboratories performed at outside facility and being told by his plater production to come to emergency room. Patient has a known history of end-stage renal disease and is on hemodialysis Sunday, Sunday, Sunday. (1) Symptomatic anemia: Patient's hemoglobin is 8.0 with hematocrit 25.3. Reticulocyte count was performed and it resulted at 0.06. s/p 2 unit of PRBC Hematology has been consulted and appreciate recommendations. s/p bone marrow aspiration and biopsy. Hb of 7.5 as at discharge. (2) End stage renal disease: Patient's plater production consulted for inpatient hemo dialysis Sunday, Sunday, and Sunday. He continued dialysis as scheduled while inpatient as per nephrology (3) Hypertension: continue home medications. (4) Nonrheumatic aortic (valve) stenosis: seen by cardiology May require TAVR - outpatient referral to [facility] by his PCP. (5) Shoulder pain: Has bilateral shoulder pain for a while. X-ray shoulder done showed moderate osteoarthritis could also be related to cervical disc disease referred pain (6) NSTEMI: Appreciate cardiology help s/p cardiac cath on 06/01/2021, it showed a heavily calcified lesion in the LAD with 80-90% stenosis as well as disease in the 1st OM. Also has diffuse disease of the RCA but no flow-limiting lesions. Plan is for referral to interventional cardiology at [facility] for PCI of complex heavily calcified LAD lesion and OM1 disease, also possibly TAVR. PCP to refer to [facility] c/w Aspirin 81 mg p.o. daily, metoprolol, atorvastatin. Time Spent with Patient Time attestation: 75-year-old gentleman who presented to the emergency room after having laboratories performed at outside facility and being told by his plater production to come to emergency room. Patient has a known history of end-stage renal disease and is on hemodialysis Sunday, Sunday, Sunday. (1) Symptomatic anemia: Patient's hemoglobin is 8.0 with hematocrit 25.3. Reticulocyte count was performed and it resulted at 0.06. s/p 2 unit of PRBC Hematology has been consulted and appreciate recommendations. s/p bone marrow aspiration and biopsy. Hb of 7.5 as at discharge. (2) End stage renal disease: Patient's plater production consulted for inpatient hemo dialysis Sunday, Sunday, and Sunday. He continued dialysis as scheduled while inpatient as per nephrology (3) Hypertension: continue home medications. (4) Nonrheumatic aortic (valve) stenosis: seen by cardiology May require TAVR - outpatient referral to [facility] by his PCP. (5) Shoulder pain: Has bilateral shoulder pain for a while. X-ray shoulder done showed moderate osteoarthritis could also be related to cervical disc disease referred pain (6) NSTEMI: Appreciate cardiology help s/p cardiac cath on 06/01/2021, it showed a heavily calcified lesion in the LAD with 80-90% stenosis as well as disease in the 1st OM. Also has diffuse disease of the RCA but no flow-limiting lesions. Plan is for referral to interventional cardiology at [facility] for PCI of complex heavily calcified LAD lesion and OM1 disease, also possibly TAVR. PCP to refer to [facility] c/w Aspirin 81 mg p.o. daily, metoprolol, atorvastatin. Total time spent c
--- NOTE | 2021-06-03 14:56 | PCPTNOTE ---
The patient treatment was not able to be completed on 06/03/21 due to patient out of room for dialysis. Will plan to continue treatment per plan of care.
[2021-06-03 16:31] LABS: Glucose Point of Care 153 mg/dl (65-105)
== END 2021-06-03 18:35 | disposition home or self-care (01) | DRG 280 ==
LOC: ANHED 15:19 → ANH3MEDSUR 17:47 → ANHIMU 05-29 14:28 → ANH3MED 06-03 14:43 → ANHIMU 06-06 10:35
PROVIDERS: Internal Medicine; Internal Medicine Nephrology; Radiology Diagnostic Radiology; Specialist; Admitting Provider Internal Medicine; Emergency Provider Emergency Medicine; PCP Internal Medicine; Referring Provider Internal Medicine Hematology & Oncology; Visit Provider Internal Medicine
PROC: 079T3ZX Drainage of Bone Marrow, Percutaneous Approach, Diagnostic (ICD-10-PCS; principal; 2021-06-01 08:30)
PROC: 4A023N7 Measurement of Cardiac Sampling and Pressure, Left Heart, Percutaneous Approach (ICD-10-PCS; CPT 93454; principal; 2021-06-01 11:30)
DX: I13.2 Hypertensive heart and chronic kidney disease with heart failure and with stage 5 chronic kidney disease, or end stage renal disease (principal); I21.4 Non-ST elevation (NSTEMI) myocardial infarction; N18.6 End stage renal disease; J81.0 Acute pulmonary edema; I50.32 Chronic diastolic (congestive) heart failure; E11.319 Type 2 diabetes mellitus with unspecified diabetic retinopathy without macular edema; E11.22 Type 2 diabetes mellitus with diabetic chronic kidney disease; Z20.822 Contact with and (suspected) exposure to COVID-19; I25.5 Ischemic cardiomyopathy; I35.0 Nonrheumatic aortic (valve) stenosis; E11.65 Type 2 diabetes mellitus with hyperglycemia; D63.1 Anemia in chronic kidney disease; N25.0 Renal osteodystrophy; H40.9 Unspecified glaucoma; R01.1 Cardiac murmur, unspecified; M19.012 Primary osteoarthritis, left shoulder; M19.011 Primary osteoarthritis, right shoulder; I25.10 Atherosclerotic heart disease of native coronary artery without angina pectoris; Z99.2 Dependence on renal dialysis; Z87.891 Personal history of nicotine dependence; Z95.5 Presence of coronary angioplasty implant and graft
CPT/HCPCS: 36415; 36430; 36600; 38222; 71045; 72040; 73030; 80048; 80053; 80069; 80074; 82607; 82668; 82728; 82746; 82747; 82805; 82948; 83010; 83540; 83550; 83615; 83735; 83921; 84100; 84443; 84484; 85025; 85046; 85610; 85730; 86644; 86645; 86703; 86706; 86850; 86900; 86901; 86920; 88184; 88185; 88305; 88311; 88313; 88341; 88342; 88360; 88364; 88365; 93005; 93306; 93454; 94002; 94660; 94762; 96365; 96366; 96372; 96375; 97110; 97161; 97166; 99285; A9270; C1887; C1894; C9803; G0257; G0378; G0432; J0583; J1200; J1642; J1644; J1940; J2060; J2250; J2930; J3010; J7030; J7040; J7050; P9016; Q5105; U0003; U0005

== ENCOUNTER 2021-07-05 13:43 | Emergency (ER) | payer MEDICARE, MEDICAID, SELFPAY ==
[2021-07-05 13:51] VITALS: BP 152/60; PULSE 75; RESP 16; TEMP 36.7; O2SAT 98
--- NOTE | 2021-07-05 14:02 | ED.EAR ---
HPI - Ear Problem General Chief complaint: Ear Stated complaint: left ear pain Time Seen by Provider: 07/05/21 14:00 Source: patient, family (Significant other), RN notes reviewed and old records reviewed Mode of arrival: ambulatory Limitations: no limitations History of Present Illness HPI Narrative: 75-year-old male presents to the [facility] wanting his ears cleaned out. Complains of left greater than right decreased hearing. Complains of a fullness and decreased hearing for the last 3 weeks. MD Complaint: ear pain Related Data Home Medications Medication Instructions Recorded Confirmed blood sugar diagnostic #10 each 03/24/19 06/10/21 nifedipine 60 mg tablet,extended 60 mg PO BID 03/24/19 06/10/21 release sevelamer HCl 800 mg tablet 1,600 mg PO TID tablet 03/24/19 06/10/21 minoxidil 2.5 mg tablet 10 mg PO BID tablet 03/25/19 06/10/21 metoprolol succinate 25 mg PO BID 05/28/21 06/10/21 Allergies Allergy/AdvReac Type Severity Reaction Status Date / Time shellfish derived Allergy Unknown Anaphylactic Verified 06/01/21 09:20 Shock SHELLFISH Allergy Unknown Anaphylaxis Uncoded 06/01/21 09:20 Review of Systems Review of Systems: All systems reviewed & are unremarkable except as noted in HPI and below Constitutional: Constitutional: Reports no additional constitutional complaints, Denies chills and Denies fever(s) Eyes: Eyes: Reports no additional eye complaints ENT: Reports as per HPI, Denies change in voice, Denies dental pain, Denies vertigo, Denies dizziness and Denies throat swelling Comments: Ear pain bilateral Cardiovascular: Cardiovascular: Reports no additional cardiovascular complaints, Denies chest pain and Denies dyspnea Respiratory: Respiratory: Reports no additional respiratory complaints, Denies cough and Denies dyspnea Gastrointestinal: Gastrointestinal: Reports no additional gastrointestinal complaints, Denies abdominal pain, Denies nausea and Denies vomiting Musculoskeletal: Musculoskeletal: Reports no additional musculoskeletal complaints Integumentary/Breasts: Skin/Breast: Reports system reviewed and no additional complaints, except as docu Neurologic: Reports system reviewed and no additional complaints, except as documented Psychiatric: Psychiatric: Reports no additional psychiatric complaints Allergic/Immunologic: Allergic/Immunologic: Reports no additional allergic/immunologic complaints PMFSH Past Medical History Medical History Constipation by delayed colonic transit Coronary artery disease Diabetic retinopathy Diastolic heart failure End stage renal disease Hyperglycemia Hypertension Insomnia Nonrheumatic aortic (valve) stenosis Surgical History Surgical History Fistula Status post balloon angioplasty of pulmonary artery branches Social History Social History Smoking packs per day: 0.5 Smoking cigarettes per day: 10.0 Years smoked: 40 Smoking pack-years: 20.00 Smoking status: Current every day smoker Tobacco type: cigarettes Smoking end date: 02/19/05 Alcohol intake: never Substance use: never Spiritual care concerns: No Comments At the time of my signature, I reviewed and agree with the nursing past medical, surgical, social, and family history. There is no relevant family history pertinent to the patient complaint. Exam Const: General: no acute distress, alert and ill appearing chronically Nutritional Appearance: well nourished Orientation/consciousness: patient oriented x3 Limitations: no limitations HENMT: Head: normal to inspection Ears: external ears normal, TM's normal bilaterally (Post cleanout of ear canals) and Abnormal EAC present cerumen impaction bilateral; no erythema and no EA tenderness General nose exam: Normal external nose present and Normal nasal mucous mem
== END 2021-07-05 14:19 | disposition home or self-care (01) ==
PROVIDERS: Emergency Provider Nurse Practitioner; PCP Internal Medicine
DX: H61.23 Impacted cerumen, bilateral (principal); F17.210 Nicotine dependence, cigarettes, uncomplicated; I25.10 Atherosclerotic heart disease of native coronary artery without angina pectoris; I13.2 Hypertensive heart and chronic kidney disease with heart failure and with stage 5 chronic kidney disease, or end stage renal disease; E11.22 Type 2 diabetes mellitus with diabetic chronic kidney disease; N18.6 End stage renal disease; I50.30 Unspecified diastolic (congestive) heart failure; Z99.2 Dependence on renal dialysis; Z79.84 Long term (current) use of oral hypoglycemic drugs; E11.319 Type 2 diabetes mellitus with unspecified diabetic retinopathy without macular edema; I35.0 Nonrheumatic aortic (valve) stenosis
CPT/HCPCS: 69210; 99213; G0463

== ENCOUNTER 2021-07-07 18:50 | Inpatient (IN) | payer MEDICARE, MEDICAID, SELFPAY ==
[2021-07-07] VITALS (25 sets, daily range): BP systolic 125–139; BP diastolic 46–70; PULSE 72–96; RESP 16–26; TEMP 36.3–36.6; O2SAT 85–100; BMI 25.2
--- NOTE | ~2021-07-07 | XR_ITS ---
EXAMINATION: XR chest 1V portable DATE: 07/07/2021 19:22 INDICATION: Chest pain. TECHNIQUE: A single frontal view of the chest was obtained. COMPARISON: Chest single view 05/30/2021 FINDINGS: There is a diffuse interstitial pattern, consistent mild pulmonary edema. No pleural effusi on or pneumothorax. Cardiomegaly is noted. IMPRESSION: 1. Mild pulmonary edema. 2. Cardiomegaly. Reviewed, dictated and finalized at location A.
--- NOTE | 2021-07-07 18:55 | ECG_ITS ---
Measurements Intervals [place] Rate: 92 P: 4 CO: 196 QRS: 38 QRSD: 102 T: 133 QT: 350 QTc: 434 Interpretive Statements SINUS RHYTHM VENTRICULAR PREMATURE COMPLEX ST-T WAVE ABNORMALITY IN ANTEROLAT/HIGH LAT LEADS- CONSIDER ISCHEMIA BASELINE ARTIFACT- I, II, III, AVR, AVL, AVF ABNORMAL ECG Electronically Signed On 07-07-2021 19:59:45 CDT by Lyle Solitario D.O.
--- NOTE | 2021-07-07 19:09 | ED.CHESTPAIN ---
HPI - Chest Pain General Chief Complaint: Chest Pain Stated Complaint: ABD PAIN, SHOULDER PAIN Time Seen by Provider: 07/07/21 19:04 Source: RN notes reviewed History of Present Illness HPI narrative: Patient presents emergency department from home via EMS for shoulder pain. Patient states he has had intermittent aching in his bilateral shoulders throughout the day today and has been more constant this afternoon. States his did look this up on the Internet and it is said that he might be having a heart attack and so she called EMS. Patient states that he does have a history of a recent heart catheterization showing 90% blockage that was not able to be intervened on and that is being treated medically also states he has a history of dialysis he was dialysis Sunday and Sunday with last dialysis yesterday states he has been feeling short of breath today and was noted to be hypoxic down into the upper 80s. Patient did try taking a nitro at home with minimal relief states he did have 1 episode of emesis he denies any fevers or chills abdominal pain nausea vomiting denies any chest pain Related Data Home Medications Medication Instructions Recorded Confirmed blood sugar diagnostic #10 each 03/24/19 06/10/21 nifedipine 60 mg tablet,extended 60 mg PO BID 03/24/19 06/10/21 release sevelamer HCl 800 mg tablet 1,600 mg PO TID tablet 03/24/19 06/10/21 minoxidil 2.5 mg tablet 10 mg PO BID tablet 03/25/19 06/10/21 metoprolol succinate 25 mg PO BID 05/28/21 06/10/21 Allergies Allergy/AdvReac Type Severity Reaction Status Date / Time shellfish derived Allergy Unknown Anaphylactic Verified 06/01/21 09:20 Shock SHELLFISH Allergy Unknown Anaphylaxis Uncoded 06/01/21 09:20 Review of Systems Review of Systems: Gen.: Denies fevers or chills Eyes: Denies eye pain or visual change ENT: Denies congestion Respiratory: See HPI CV: Denies chest pain or palpitations GI: Denies abdominal pain or diarrhea reports nausea vomiting x1 reports chronic renal failure with dialysis Sunday Musculoskeletal: Denies back pain or muscle pain Neuro: Denies numbness, tingling, weakness or focal weakness Skin: Denies rash Except as documented, all other systems reviewed and negative [facility] Past Medical History Medical History Constipation by delayed colonic transit Coronary artery disease Diabetic retinopathy Diastolic heart failure End stage renal disease Hyperglycemia Hypertension Insomnia Nonrheumatic aortic (valve) stenosis Surgical History Surgical History Fistula Status post balloon angioplasty of pulmonary artery branches Social History Social History Smoking packs per day: 0.5 Smoking cigarettes per day: 10.0 Years smoked: 40 Smoking pack-years: 20.00 Smoking status: Current every day smoker Tobacco type: cigarettes Smoking end date: 02/19/05 Alcohol intake: never Substance use: never Spiritual care concerns: No Exam Narrative: APPEARANCE: No acute distress, nontoxic, resting in bed EYES: EOMI HEENT: Normocephalic, atraumatic, OMM RESPIRATORY: No respiratory distress Clear to auscultation bilaterally with no rhonchi wheezing or rales. CARDIOVASCULAR: Regular rate and rhythm without murmurs rubs or gallops. ABDOMINAL: Soft, nontender, nondistended, no rebound or guarding MUSCULOSKELETAl: Moves all extremities. No clubbing, cyanosis or edema. NEURO: Awake and alert. Following commands, speech normal, no focal deficits SKIN:: Warm, dry. No rashes lesions or abrasions PSYCHIATRIC: Normal affect/mood, Course Course Emergency Course: Reviewed old records including recent cath report Patient states achiness in shoulders are resolved following Intropaste Called and discussed with Dr. Wiseman presentation work-up. Agr
[2021-07-07] MEDS: ASPIRIN 81 MG CHEWABLE TABLET 324 MG PO (19:22)
[2021-07-07] MEDS: NITROGLYCERIN OINTMENT 1 INCH DOSE 0.5 INCH TRANSDERM (19:23)
[2021-07-07 19:31] LABS: Basophils Absolute Auto 0.1 K/mm3 (0.0-0.1); Basophils Percent Auto 0.6 % (0.2-1.2); Eosinophils Absolute Auto 0.1 K/mm3 (0-0.3); Eosinophils Percent Auto 0.7 % (0-4.4); Hematocrit 34.1 % (42.0-52.0); Immature Granulocyte Absolute 0.03 K/mm3 (0.00-0.031); Immature Granulocyte Percent A 0.3 % (0-0.5); Lymphocytes Absolute Auto 0.63 K/mm3 (0.9-3.2); Lymphocytes Percent Auto 6.6 % (18.3-44.2); Mean Corpuscular HGB Conc 32.3 g/dl (32-36); Mean Corpuscular Hemoglobin 34.8 pg (26-34); Mean Corpuscular Volume 107.9 fl (80-100); Mean Platelet Volume 9.2 fl (7.4-10.4); Monocytes Absolute Auto 0.6 K/mm3 (0.1-0.6); Neutrophils Absolute Auto 8.2 K/mm3 (1.3-6.7); Neutrophils Percent Auto 85.8 % (45.5-73.1); Platelet Count Result 151 k/mm3 (150-375); Red Blood Count 3.16 M/mm3 (4.6-6.20); Red Cell Distribution Width 14.3 % (11.5-14.5); White Blood Count 9.6 K/mm3 (4.5-10.0)
[2021-07-07 19:41] LABS: Alanine Aminotransferase 10 U/L (6-50); Albumin Level 3.9 g/dL (3.5-5.1); Alkaline Phosphatase 79 U/L (38-126); Anion Gap 15 mmol/L (8-16); Aspartate Amino Transferase 23 U/L (17-59); Bilirubin,Total 0.8 mg/dL (0.2-1.3); Blood Urea Nitrogen 50 mg/dL (9-20); Calcium 9.4 mg/dL (8.4-10.2); Carbon Dioxide 25 mmol/L (22-30); Chloride 97 mmol/L (98-107); Estimated Glomerular Filt Rate 9; Glucose 144 mg/dL (65-110); Lipase 35 U/L (23-300); Potassium 3.8 mmol/L (3.4-5.0); Sodium 137 mmol/L (137-145)
[2021-07-07 19:48] LABS: INR 1.2; Prothrombin Time 14.9 Seconds (11.1-14.7)
[2021-07-07 19:49] LABS: Partial Thromboplastin Time 38.3 SECONDS (22.3-36.8)
[2021-07-07 19:50] LABS: NT Pro B Type Natriuretic Pept > 35000 pg/mL (5-100)
[2021-07-07 19:57] LABS: Troponin I 0.233 ng/mL (0.000-0.034)
--- NOTE | 2021-07-07 20:30 | PM.IMHP ---
H&P: HPI History of Present Illness Date/Time: 07/07/21 20:30 Chief Complaint: Chest pain. Narrative: This is a 75-year-old male with past medical history significant for end-stage renal disease on hemodialysis Sunday, coronary artery disease, hypertension, tobacco dependence, aortic stenosis. Patient presented to the emergency room due to pain in the bilateral shoulder with radiation to this scapular area and the neck patient had recently a catheterization which showed 90% occlusion patient was supposed to be referred for further evaluation through his primary care physician. Patient also require supplemental oxygen in the emergency room due to low pulse ox on room air. Patient denies any fevers, rigors, chills, cough, sputum production, syncope, near syncope, lightheadedness, palpitations, no nausea, no vomiting, no abdominal pain. Preliminary workup was significant for chest x-ray with mild pulmonary edema, a BNP was 35,000, troponins x3 have been elevated. Patient is been admitted for further evaluation, management and treatment. Review of Systems Review of Systems: Pain in bilateral shoulders with radiation to the scapular area and the neck, shortness of breath, bilateral lower extremity edema Constitutional: Constitutional: Denies chills, Denies fever(s), Denies malaise and Denies night sweats Eyes: Comments: Patient has loss of visual acuity ENT: Denies dysphagia, Denies nasal congestion, Denies nasal discharge, Denies nasal obstruction and Denies odynophagia Cardiovascular: Cardiovascular: Reports chest pain, Reports leg edema, Denies lightheadedness, Reports radiating jaw, neck or arm pain and Denies palpitations Respiratory: Respiratory: Denies chest congestion, Denies cough and Reports dyspnea Gastrointestinal: Gastrointestinal: Denies abdominal pain, Denies dyspepsia, Denies heartburn, Denies nausea and Denies vomiting Genitourinary: Genitourinary: Reports no additional male genitourinary complaints and Reports as per HPI Musculoskeletal: Musculoskeletal: Denies arthralgias Integumentary/Breasts: Skin/Breast: Denies rash Neurologic: Denies focal weakness and Denies Sensory deficit (Neuro) Psychiatric: Psychiatric: Reports no additional psychiatric complaints and Reports as per HPI Endocrine: Endocrine: Denies cold intolerance, Denies heat intolerance, Denies polyphagia and Denies palpitations Hematologic/Lymphatic: Hematologic/Lymphatic: Reports no additional hematologic/lymphatic complaints and Reports as per HPI Allergic/Immunologic: Allergic/Immunologic: Reports no additional allergic/immunologic complaints and Reports as per HPI PMFSH Past Medical History Medical History Constipation by delayed colonic transit Coronary artery disease Diabetic retinopathy Diastolic heart failure End stage renal disease Hyperglycemia Hypertension Insomnia Nonrheumatic aortic (valve) stenosis Surgical History Surgical History Fistula Status post balloon angioplasty of pulmonary artery branches Family History Family History (Updated 07/07/21 @ 22:58 by Erin Ott RN) Father Natural of unknown etiology Mother Natural of unknown etiology Social History Social History Smoking packs per day: 0.5 Smoking cigarettes per day: 10.0 Years smoked: 40 Smoking pack-years: 20.00 Smoking status: Current every day smoker Alcohol intake: never Substance use: never Spiritual care concerns: No Meds Home Medications and Allergies Home Medications Medication Instructions Recorded Confirmed Type nifedipine 60 mg tablet,extended 60 mg PO BID 03/24/19 07/07/21 History release sevelamer HCl 800 mg tablet 1,600 mg PO TID tablet 03/24/19 07/07/21 History minoxidil 2.5 mg tablet 10 mg PO BID tablet 03/25/19 05
[2021-07-07 20:48] LABS: SARS-CoV-2 RNA PCR Negative
--- NOTE | 2021-07-07 22:51 | ADMGEN ---
This patient, Isidoro Cheek, was admitted to IMU Room 214-01 at 2250. Patient/family oriented to hospital policies and general routines including ID bracelet, bed and alarms, visiting hours, pain management, procedures, bathroom and other care routines, personal items, smoking policy, room service/diet, and visiting hours. Information on how to activate the Rapid Response Team has been discussed. Patient/Family are encouraged to report perceived risks to care and to ask questions if they do not understand what they are told or what they should do.
[2021-07-07 23:02] LABS: Troponin I 0.578 ng/mL (0.000-0.034)
[2021-07-08] VITALS (23 sets, daily range): BP systolic 120–177; BP diastolic 47–87; PULSE 66–100; RESP 16–20; TEMP 36–37.2; O2SAT 90–100
[2021-07-08 02:02] LABS: Basophils Absolute Auto 0.1 K/mm3 (0.0-0.1); Basophils Percent Auto 0.8 % (0.2-1.2); Eosinophils Percent Auto 0.4 % (0-4.4); Hematocrit 30.4 % (42.0-52.0); Hemoglobin 9.5 g/dL (14.0-18.0); Immature Granulocyte Absolute 0.02 K/mm3 (0.00-0.031); Immature Granulocyte Percent A 0.2 % (0-0.5); Lymphocytes Absolute Auto 0.84 K/mm3 (0.9-3.2); Lymphocytes Percent Auto 10.2 % (18.3-44.2); Mean Corpuscular HGB Conc 31.3 g/dl (32-36); Mean Corpuscular Hemoglobin 34.3 pg (26-34); Mean Corpuscular Volume 109.7 fl (80-100); Mean Platelet Volume 9.7 fl (7.4-10.4); Monocytes Absolute Auto 0.6 K/mm3 (0.1-0.6); Monocytes Percent Auto 6.8 % (2.6-8.5); Neutrophils Absolute Auto 6.7 K/mm3 (1.3-6.7); Neutrophils Percent Auto 81.6 % (45.5-73.1); Platelet Count Result 148 k/mm3 (150-375); Red Blood Count 2.77 M/mm3 (4.6-6.20); Red Cell Distribution Width 14.3 % (11.5-14.5); White Blood Count 8.3 K/mm3 (4.5-10.0)
[2021-07-08 02:13] LABS: Alanine Aminotransferase 8 U/L (6-50); Albumin Level 3.6 g/dL (3.5-5.1); Alkaline Phosphatase 66 U/L (38-126); Anion Gap 14 mmol/L (8-16); Aspartate Amino Transferase 22 U/L (17-59); Bilirubin,Total 0.7 mg/dL (0.2-1.3); Blood Urea Nitrogen 53 mg/dL (9-20); Calcium 9.1 mg/dL (8.4-10.2); Carbon Dioxide 28 mmol/L (22-30); Chloride 96 mmol/L (98-107); Estimated CRCL calculation 8 ml/min; Estimated Glomerular Filt Rate 8; Glucose 128 mg/dL (65-110); Sodium 138 mmol/L (137-145)
[2021-07-08] MEDS: ENOXAPARIN 80 MG/0.8 ML SYRINGE 73 MG SUB-Q (05:46)
[2021-07-08] MEDS: ATORVASTATIN 40 MG TABLET PO (08:30)
[2021-07-08] MEDS: NIFEdipine 30 MG TAB.ER.24 60 MG PO ×2 (08:30→20:16)
[2021-07-08] MEDS: minoxidiL 2.5 MG TABLET 5 MG PO ×2 (08:30→17:45)
[2021-07-08] MEDS: ASPIRIN 81 MG ENTERIC TABLET PO (08:30)
[2021-07-08] MEDS: METOPROLOL SUCCINATE EXT REL 12.5 MG TABCR PO ×2 (08:31→20:16)
[2021-07-08] MEDS: lisinopriL 20 MG TABLET PO (08:31)
[2021-07-08] MEDS: SEVELAMER CARBONATE 800 MG TABLET 1600 MG PO ×3 (08:31→17:45)
--- NOTE | 2021-07-08 09:28 | PM.IMPN ---
Progress Note: A&P Assessment and Plan (1) Atypical chest pain: Code(s): R07.89 - Other chest pain Status: Acute Assessment and Plan: Coronary angiogram 05/2021 showed a heavily calcified lesion in the LAD with 80-90% stenosis as well as disease in the 1st OM. Also has diffuse disease of the RCA but no flow-limiting lesions. Plan was for referral to interventional cardiology at [facility] for PCI of complex heavily calcified LAD lesion and OM1 disease, also possibly TAVR (as below for moderate ) -Troponin 0.23->0.57->1.210 (chronic elevations seen over previous stays, likely ESRD playing contributing factor in this as well as above multivessel dz) -EKG showed concern for anterior/ lateral ischemia -CXR showed mild pulmonary edema nad cardiomegaly. -Cardiology consult has been placed given above and history of known multivessel disease, and we do appreciate their recommendations at this time. Continue telemetry Continue home meds/ DAPT Monitor for symptoms. AM labs. Check lytes/TSH (2) Acute respiratory failure with hypoxia: Code(s): J96.01 - Acute respiratory failure with hypoxia Status: Acute Assessment and Plan: Likely secondary to pulmonary edema. Today 92% on 4L supplemental O2 via nasal cannula Dialysis this AM should improve some of this. Appreciate Nephrology inputs on fluid overload. (3) Nonrheumatic aortic (valve) stenosis: Code(s): I35.0 - Nonrheumatic aortic (valve) stenosis Status: Acute Assessment and Plan: Recent evaluation showed moderate aortic valve stenosis with a peak velocity of 253 cm/s, mean gradient of 13 mmHg, and aortic valve area of 1.1 cm2. He also has moderate MR. May require TAVR - outpatient referral in to [facility] (4) End stage renal disease: Code(s): N18.6 - End stage renal disease Status: Chronic Assessment and Plan: Dialysis M/W/F. Dialysis this AM. Nephrology is following and we do appreciate their recommendations. (5) Smoker: Code(s): F17.200 - Nicotine dependence, unspecified, uncomplicated Status: Acute Assessment and Plan: Nicotine patch as needed (6) Diabetes: Code(s): E11.9 - Type 2 diabetes mellitus without complications Status: Chronic Assessment and Plan: Patient with history of diabetes, does not appear to be on any diabetic meds, likely diet controlled. AM glucose slightly elevated today. Will Check A1C. A1c Accuchecks with low dose SSI. Daily glucose checks Subjective Date/time seen: 07/08/21 09:28 Interval history: This is a 75-year-old male with past medical history significant for end-stage renal disease on hemodialysis Sunday, coronary artery disease, hypertension, tobacco dependence, aortic stenosis. Patient presented to the emergency room due to pain in the bilateral shoulder with radiation to this scapular area and the neck. Patient had recently a catheterization which showed 90% occlusion. He states his pain has completely resolved without reocurrance. He states he was aware of prior plan for treatment of his cardiac disease at [facility], but states it is unlikely that will happen as he cannot get there. No shortness of breath. He states he is cold today, though this is chronic for him. Review of Systems Review of Systems: All systems reviewed & are unremarkable except as noted in HPI and below Exam Narrative: GENERAL APPEARANCE: chronically ill appearing male, examined in dialysis today. Alert and oriented x 3, in no apparent distress. HEENT: PERRL, EOMI. Sclerae anicteric. Moist mucous membranes. NECK: Supple. No JVD or obvious carotid bruits. RESPIRATORY: Respirations are nonlabored. Breath sounds are equal and clear bilaterally. No wheezes, Rhonchi, or rales. Patient has hiccups. CARDIOVASCULAR: Regular rate and rhythm with normal S1-S2. No murmurs, gallops, or rubs. GASTROINTE
--- NOTE | 2021-07-08 11:14 | PM.CNCAR ---
Assessment and Plan Additional Plan This is a 75-year-old man with chronic kidney disease on hemodialysis who is known to have severe coronary artery disease primarily involving the proximal half of the LAD which is heavily calcified with 2 areas of severe stenosis. He also was known to have significant aortic valve disease valve area 1.1 cm2 by recent echo as well as moderate LV systolic dysfunction. His treatment requires higher risk PCI of the LAD probably either with Rotablator or shockwave therapy to treat his heavily calcified vessel which is not available here at [facility]. I also a.m. relatively confident he now or in the near future require aortic valve replacement. He has not pursued the recommended contact with interventional colleagues at [place] and I believe we should therefore at this time change plans to an inpatient inpatient transfer since he is back in the hospital with a modest troponin rise. His workup has been completed here at [place] there is no further testing that he needs at this hospital. I will contact the [facility] transfer line and see if we can arrange for an inpatient to inpatient transfer. Reinaldo Hagen MD [facility] History of Present Illness History of Present Illness Consult date/time: Date of service: 07/08/21 11:14 Consult reason: chest pain Reason For Visit: pulmon edema,acute respiratory failure w/hypoxia Narrative: This is a 75-year-old man known to our service with coronary artery disease and aortic valve disease who was readmitted to the hospital from the emergency room yesterday with a chief complaint of bilateral shoulder pain as well as some mild upper central substernal chest pain that occurred yesterday while he was at home. The patient was not experiencing any cardiac symptoms recently and last evening he started to have symptoms of a aching sensation in the shoulders bilaterally he did not describe this as a severe pain or a pressure-like sensation but given his recent evaluation is detailed below he and his significant other became concerned after short time an ambulance was called and he was brought to [facility] for further evaluation. His electrocardiogram was found to show sinus rhythm with some LVH and ST and T-wave abnormalities which are unchanged from previous recent ECGs in the record. Troponin levels following admission have risen slightly to 1.2. The patient does have chronic end-stage renal disease and is on hemodialysis and therefore has chronic mild troponin elevation as well. He was seen in May of this year by our service at this hospital in consultation because of some chest pain he was found on echo to have aortic valve stenosis with a valve area of 1.1 cm2 and moderate LV systolic dysfunction with an ejection fraction of 30-35%. Angiographically found in the [employer] to have severe disease of the LAD with heavy calcification of 1st 1/3 of the artery with a sequential 90 and 80% stenosis in the midportion this heavily calcified segment does bridge over the origin of the major diagonal branch as well. The patient otherwise had moderate RCA disease found. He was not clinically unstable and he was felt to require higher risk revascularization of his LAD and or likely as well transcatheter aortic valve replacement. Since he was clinically stable he was discharged and the plans were for him to pursue referral to Interventional colleagues at [facility] for this. He was apparently seen by our nurse practitioner couple of weeks ago he was feeling well and he and his significant other elected to delay pursuing that. He is currently being seen in dialysis he is resting comfortably and offers no complaints. Review of Systems Constitutional: Constitutional: Reports fatigue Eyes: Eyes: Reports no additional eye complaints ENT: Reports system reviewed and no additional complaints, except as documented Cardiovascular: Cardiovascular: Reports as per HPI Respiratory: Respiratory:
[2021-07-08] MEDS: EPOETIN ALFA-EPBX 10,000 UNITS/ML VIAL 10000 UNITS IV PUSH (11:39)
--- NOTE | 2021-07-08 12:22 | PM.CNNEP ---
Assessment and Plan Additional Plan 1. Isidoro had shoulder pain. This is what he had when he had his heart attack last admission. He feels better now. Cardiology is going to see him. 2. The patient has end-stage renal disease. He gets dialysis on Wednesdays and Fridays. His dialysis underway currently. He is slightly volume overloaded so I will take some fluid off in the dialysis. 3. The patient has diabetes. This is being managed by the hospitalists. 4. The patient has hypertension. His blood pressure is a little bit high. We will see how he responds to fluid removal. If he has cardiac medication adjusted by Cardiology this will also bring his blood pressure down. 5. The patient has anemia. His hemoglobin is slightly below target which runs between 10 and 11. I will give him EPO today. We can check some iron levels tomorrow. 6. The patient has renal osteodystrophy. We will check a phosphorus level in the morning. History of Present Illness Reason for Consult Consult date: 07/08/21 Chief Complaint Chief complaint: pulmon edema,acute respiratory failure w/hypoxia History of Present Illness Narrative: Isidoro is a very pleasant 75-year-old gentleman who has multiple medical problems including end-stage renal disease on dialysis 3 times a week, hypertension, diabetes, coronary disease with vessels that are unable to be stented, prior myocardial infarction, and non rheumatic aortic valve stenosis. The patient is in the hospital recently for shoulder pain which turned out to be angina. They did a cardiac catheterization and found severe coronary disease but in small vessels that were not able to be stented. He was treated medically and his symptoms improved. The patient has done well since then without any symptoms. Last night however the patient developed shoulder pain which was exactly like what he had when he had his heart attack before so he came to the emergency room. In the ER he was evaluated. His troponins were mildly elevated. His oxygen level was a little bit on the low side. His chest x-ray showed a little bit of fluid. He was admitted for further evaluation and cardiac consultation. Sugars have been doing pretty well he says. His dialysis has been going well. No drops in blood pressure. Review of Systems Constitutional: Constitutional: Reports no additional constitutional complaints Eyes: Eyes: Reports no additional eye complaints ENT: Reports system reviewed and no additional complaints, except as documented Cardiovascular: Cardiovascular: Reports no additional cardiovascular complaints Respiratory: Respiratory: Reports no additional respiratory complaints Gastrointestinal: Gastrointestinal: Reports no additional gastrointestinal complaints Genitourinary: Genitourinary: Reports no additional male genitourinary complaints Musculoskeletal: Musculoskeletal: Reports no additional musculoskeletal complaints Integumentary/Breasts: Skin/Breast: Reports system reviewed and no additional complaints, except as docu Neurologic: Reports system reviewed and no additional complaints, except as documented Psychiatric: Psychiatric: Reports no additional psychiatric complaints Endocrine: Endocrine: Reports no additional endocrine complaints PMFSH Past Medical History Medical History Constipation by delayed colonic transit Coronary artery disease Diabetic retinopathy Diastolic heart failure End stage renal disease Hyperglycemia Hypertension Insomnia Nonrheumatic aortic (valve) stenosis Surgical History Surgical History Fistula Status post balloon angioplasty of pulmonary artery branches Family History Family History Father Natural of unknown etiology Mother Natural of unknown etiology
--- NOTE | 2021-07-08 12:25 | PM.EVENT ---
Event Note Event Note Event Note: Patient is on dialysis and tolerating it well. His blood pressure is running in the 140s to 160s. He is getting some fluid off. He was seen at 10:15 a.m.
[2021-07-08] MEDS: CLOPIDOGREL BISULFATE 75 MG TABLET PO (12:57)
[2021-07-08 14:36] LABS: Magnesium 1.9 mg/dL (1.6-2.3)
[2021-07-08 16:13] LABS: Glucose Point of Care 177 mg/dl (65-105)
--- NOTE | 2021-07-08 21:08 | PC.NURSE ---
[facility] called to make aware of patient being in transit to [facility] and also that his shoes were left here. An attempt was made to catch the ambulance before leaving but was unsuccessful. No answer so message was left on voicemail.
--- NOTE | 2021-07-19 08:10 | PM.TDS ---
Transfer Discharge Sum: Prov Provider Date of admission: 07/08/21 07:55 Primary care physician: Juan David Laboy DO Admitting clinician: Juany Morris MD Consults: 07/07/21 Consult to Physician Routine Comment: Consulting Provider: Shaq Wiseman Reason for consultation: chest pain Has provider been notified: Yes Consult to Physician Routine Comment: Consulting Provider: Odin Riuz Reason for consultation: dialysis Has provider been notified: Yes DS: Admitting Diagnosis Discharge Date 07/08/21 Admitting Diagnosis Chest Pain DS: Discharge Diagnosis Discharge Diagnosis (1) Atypical chest pain: Code(s): R07.89 - Other chest pain Status: Acute Assessment and Plan: Coronary angiogram 05/2021 showed a heavily calcified lesion in the LAD with 80-90% stenosis as well as disease in the 1st OM. Also has diffuse disease of the RCA but no flow-limiting lesions. Plan was for referral to interventional cardiology at [facility] for PCI of complex heavily calcified LAD lesion and OM1 disease, also possibly TAVR (as below for moderate ) -Troponin 0.23->0.57->1.210 (chronic elevations seen over previous stays, likely ESRD playing contributing factor in this as well as above multivessel dz) -EKG showed concern for anterior/ lateral ischemia -CXR showed mild pulmonary edema nad cardiomegaly. -Cardiology consult has been placed given above and history of known multivessel disease, and we do appreciate their recommendations at this time. Continue telemetry Continue home meds/ DAPT Monitor for symptoms. AM labs. Check lytes/TSH (2) Acute respiratory failure with hypoxia: Code(s): J96.01 - Acute respiratory failure with hypoxia Status: Acute Assessment and Plan: Likely secondary to pulmonary edema. Today 92% on 4L supplemental O2 via nasal cannula Dialysis this AM should improve some of this. Appreciate Nephrology inputs on fluid overload. (3) Nonrheumatic aortic (valve) stenosis: Code(s): I35.0 - Nonrheumatic aortic (valve) stenosis Status: Acute Assessment and Plan: Recent evaluation showed moderate aortic valve stenosis with a peak velocity of 253 cm/s, mean gradient of 13 mmHg, and aortic valve area of 1.1 cm2. He also has moderate MR. May require TAVR - outpatient referral in to [facility] (4) End stage renal disease: Code(s): N18.6 - End stage renal disease Status: Chronic Assessment and Plan: Dialysis M/W/F. Dialysis this AM. Nephrology is following and we do appreciate their recommendations. (5) Smoker: Code(s): F17.200 - Nicotine dependence, unspecified, uncomplicated Status: Acute Assessment and Plan: Nicotine patch as needed (6) Diabetes: Code(s): E11.9 - Type 2 diabetes mellitus without complications Status: Chronic Assessment and Plan: Patient with history of diabetes, does not appear to be on any diabetic meds, likely diet controlled. AM glucose slightly elevated today. Will Check A1C. A1c Accuchecks with low dose SSI. Daily glucose checks Transfer Discharge Sum: Med Medications Active and Home Medications: Home Medications nifedipine 60 mg tablet,extended release 60 mg PO BID 03/24/19 [History Confirmed 07/07/21] sevelamer HCl 800 mg tablet 1,600 mg PO TID 03/24/19 [History Confirmed 07/07/21] minoxidil 2.5 mg tablet 10 mg PO BID 03/25/19 [History Confirmed 07/07/21] atorvastatin 40 mg tablet 40 mg PO DAILY #90 tabs 07/09/20 [Rx Confirmed 07/07/21] lisinopril 20 mg tablet 20 mg PO DAILY #30 tabs 12/01/20 [Rx Confirmed 07/07/21] metoprolol succinate 100 mg tablet,extended release 24 hr 25 mg PO BID 05/28/21 [History Confirmed 07/07/21] aspirin 81 mg tablet,delayed release 81 mg PO QAM #30 tabs 06/03/21 [Rx Confirmed 07/07/21] clopidogrel 75 mg tablet 75 mg PO QAM #30 tabs 06/03/21 [Rx Confirmed 07/07/21] melatonin
== END 2021-07-08 20:35 | disposition short-term general hospital (02) | DRG 302 ==
LOC: ANHED 20:01 → ANHIMU 21:09
PROVIDERS: Emergency Medicine; Student in an Organized Health Care Education/Training Program; Admitting Provider Internal Medicine; Emergency Provider Emergency Medicine; PCP Internal Medicine; Visit Provider Internal Medicine
DX: I25.10 Atherosclerotic heart disease of native coronary artery without angina pectoris (principal); J96.01 Acute respiratory failure with hypoxia; N18.6 End stage renal disease; I13.2 Hypertensive heart and chronic kidney disease with heart failure and with stage 5 chronic kidney disease, or end stage renal disease; I50.32 Chronic diastolic (congestive) heart failure; R07.89 Other chest pain; E11.22 Type 2 diabetes mellitus with diabetic chronic kidney disease; Z99.2 Dependence on renal dialysis; Z20.822 Contact with and (suspected) exposure to COVID-19; F17.210 Nicotine dependence, cigarettes, uncomplicated; R77.8 Other specified abnormalities of plasma proteins; I35.0 Nonrheumatic aortic (valve) stenosis; E11.319 Type 2 diabetes mellitus with unspecified diabetic retinopathy without macular edema; D64.9 Anemia, unspecified; N25.0 Renal osteodystrophy; I25.2 Old myocardial infarction; Z79.899 Other long term (current) drug therapy
CPT/HCPCS: 36415; 71045; 80053; 82948; 83036; 83690; 83735; 83880; 84443; 84484; 85025; 85610; 85730; 93005; 96372; 99213; 99291; A9270; C9803; G0257; G0378; G0463; J1644; J1650; J7030; Q5105; U0003; U0005